=== PATIENT | male | born 1960 | race Caucasian/White ===

== ENCOUNTER 2018-02-09 05:10 | Emergency (ER) | payer SELFPAY ==
[2018-02-09] MEDS ORDERED: LORazepam 0.5 MG TABLET PO STA (05:56)
[2018-02-09 06:18] LABS: BASOPHILS # (AUTO) 0.1 10^3/uL (0.0-0.1); BASOPHILS % (AUTO) 0.7 %; EOSINOPHILS # (AUTO) 0.2 10^3/uL (0.0-0.7); EOSINOPHILS % (AUTO) 1.8 %; HGB - HEMOGLOBIN 16.6 g/dL (14.0-18.0); LYMPHOCYTES # (AUTO) 2.2 10^3/uL (1.5-3.5); MEAN CORPUSCULAR HEMOGLOBIN 26.4 pg (27.0-31.0); MEAN CORPUSCULAR HGB CONC 32.7 g/dL (32.0-36.0); MEAN CORPUSCULAR VOLUME 80.7 fL (80.0-94.0); MEAN PLATELET VOLUME 7.9 fL (7.4-11.4); MONOCYTES # (AUTO) 0.8 10^3/uL (0.0-1.0); NEUTROPHILS # (AUTO) 9.5 10^3/uL (1.5-6.6); NEUTROPHILS % (AUTO) 74.5 %; PLT - PLATELET COUNT 218 10^3/uL (130-450); RED BLOOD COUNT 6.28 10^6/uL (4.70-6.10); RED CELL DISTRIBUTION WIDTH 13.5 % (12.0-15.0); WHITE BLOOD COUNT 12.8 x10^3/uL (4.8-10.8)
[2018-02-09 06:31] LABS: CALCIUM 8.5 mg/dL (8.5-10.3); CREATININE 0.9 mg/dL (0.6-1.2)
--- NOTE | 2018-02-09 06:35 | ED Physician Documentation ---
History of Present Illness - Stated complaint Stated Complaint: HTN - Chief complaint Chief Complaint: General - History obtained from History obtained from: Patient - History of Present Illness Timing: Enter time (approximately 1 AM) Pain level max: 0 Pain level now: 0 Improved by: no ameliorating factors Worsened by: no exacerbating factors - Additonal information Additional information: c/o feeling anxious starting a few hours ago. he kept trying to stay in bed and get to sleep, but he would then feel more anxious and felt the need to get up and pace around the room. he tried to distract himself by watching TV but the feeling of overwhelming anxiety worsened and he thus presents to ED. he had palpitations as well, but denies dyspnea, chest pain, abdominal pain, weakness. he had similar, but milder, symptoms in the past, but rarely and these were typically associated with eating too much (per patient) and feeling bloated. Review of Systems Cardiac: reports: Palpitations. denies: Chest pain / pressure Respiratory: reports: Reviewed and negative GI: reports: Reviewed and negative Neurologic: reports: Reviewed and negative Psychiatric: reports: Anxiety. denies: Depressed PD PAST MEDICAL HISTORY - Past Medical History Past Medical History: Yes Cardiovascular: Hypertension Endocrine/Autoimmune: Type 2 diabetes - Past Surgical History Past Surgical History: No - Present Medications Home Medications: Ambulatory Orders Medication Instructions Recorded Confirmed HYDROcod/ACETAM 5/325 [[place] 5/325] 1 - 2 ea PO Q6H PRN #20 tablet 03/01/16 Hydrocortisone Acetate [Anucort-Hc] 25 mg RC DAILY #10 supp.rect 03/01/16 Lidocaine/Hydrocortisone AC 03/01/16 [Lidocaine-Hc 3-0.5% Cream] Lisinopril 20 mg 03/01/16 Clindamycin HCl [Clindamycin 300MG 300 mg PO Q6H 7 Days capsule 03/04/16 CAP] LORazepam [Ativan] 0.5 - 1 mg PO Q6H PRN #20 tablet 02/09/18 - Allergies Allergies/Adverse Reactions: Allergies Allergy/AdvReac Type Severity Reaction Status Date / Time No Known Drug Allergies Allergy Verified 02/09/18 05:25 - Social History Does the pt smoke?: No Smoking Status: Never smoker Does the pt drink ETOH?: Yes Does the pt have substance abuse?: No Substance Use and Type: Marijuana - Immunizations Immunizations are current?: No - POLST Patient has POLST: No PD ED PE NORMAL - Vitals Vital signs reviewed: Yes - General General: Alert and oriented X 3, No acute distress, Well developed/nourished - HEENT HEENT: Moist mucous membranes - Cardiac Cardiac: RRR, No murmur - Respiratory Respiratory: No respiratory distress, Clear bilaterally - Abdomen Abdomen: Soft, Non tender - Neuro Neuro: Alert and oriented X 3 - Psych Psych: Normal mood, Normal affect Results - Vitals Vitals: Oxygen O2 Source Room air - EKG (time done) No standard instances Rate: Rate (enter#) (100) Rhythm: NSR [place]: Normal Intervals: Normal MD QRS: Normal Ischemia: Normal ST segments - Labs Labs: Laboratory Tests 02/09/18 02/09/18 02/09/18 06:09 06:09 06:09 WBC 12.8 H RBC 6.28 H Hgb 16.6 Hct 50.7 MCV 80.7 MCH 26.4 L MCHC 32.7 RDW 13.5 Plt Count 218 MPV 7.9 Neut # 9.5 H Lymph # 2.2 [place] # 0.8 Eos # 0.2 Baso # 0.1 Absolute Nucleated RBC 0.00 Nucleated RBC % 0.0 Sodium 136 Potassium 3.8 Chloride 105 Carbon Dioxide 21 Anion Gap 10.0 BUN 16 Creatinine 0.9 Estimated GFR (MDRD) 87 L Glucose 190 H Calcium 8.5 Troponin I < 0.04 PD MEDICAL DECISION MAKING - ED course Complexity details: re-evaluated patient, considered differential, d/w patient ED course: after 1mg ativan PO, patient reports resolution of symptoms. Departure - Departure Disposition: 01 Home, Self Care Clinical Impression: Anxiety Condition: Good Instructions: ED Panic Attack Prescriptions: LORazepam [Ativan] 0.5 - 1 mg PO Q6H PRN #20 tablet PRN Reason: Anxiety Comments: Follow up with your doctor: call to arrange for next available appointment. Your blood pressure was high today, but this is not what is causing your symptoms. Your doctor will recheck your blood pressure and make recommendations regarding your blood pressure medication at that time. Your doctor might order other tests to evaluate the symptoms you had tonight. Discharge Date/Time: 02/09/18 07:08
[2018-02-09 06:51] VITALS: BP 152/108
== END 2018-02-09 07:08 | disposition home or self-care (01) ==
LOC: ED 05:10
DX: F41.9 Anxiety disorder, unspecified (principal); R00.0 Tachycardia, unspecified; I10 Essential (primary) hypertension; E11.9 Type 2 diabetes mellitus without complications
CPT/HCPCS: 36415; 80048; 84484; 85025; 93005; 99283; A9270

== ENCOUNTER 2018-09-03 08:54 | Emergency (ER) | payer MEDICAID ==
[2018-09-03] MEDS ORDERED: SODIUM CHLORIDE 0.9% 1,000 ML IV ONE ×2 (09:43→10:52)
[2018-09-03] MEDS ORDERED: LOPERAMIDE 2 MG CAPSULE PO STA (09:43)
--- NOTE | 2018-09-03 09:46 | ED Physician Documentation ---
PD HPI NVD - Stated complaint Stated Complaint: DIARRHEA - Chief complaint Chief Complaint: Abd Pain - History obtained from History obtained from: Patient, Family - History of Present Illness Timing - onset: How many days ago (3) Timing - duration: Days (3) Timing - details: Gradual onset, Still present Associated symptoms: Abdominal pain, Dizzy, Weight loss Improved by: Laying still Worsened by: Moving Similar symptoms before: Has not had sx before Recently seen: Not recently seen - Additonal information Additional information: Previously well 58-year-old male has developed acute vomiting followed by diarrhea starting about 3 days ago. He reports 17 episodes of diarrhea yesterday. He did take some Imodium the first day this occurred and he has not taken it since. He did see his doctor yesterday. He feels that he is dehydrated today. His vomiting has improved. His abdominal pain which is in the left lower side has improved today over yesterday. He has not noted blood in the diarrhea Review of Systems Constitutional: reports: Fatigue, Weight Loss, Sweats. denies: Fever, Chills Eyes: denies: Decreased vision Ears: denies: Ear pain Nose: denies: Congestion Throat: denies: Sore throat Cardiac: denies: Chest pain / pressure, Palpitations Respiratory: denies: Dyspnea, Cough GI: reports: Abdominal Pain, Nausea, Vomiting, Diarrhea : denies: Dysuria, Frequency Skin: denies: Rash, Lesions Musculoskeletal: denies: Neck pain, Back pain, Extremity pain Neurologic: denies: Generalized weakness, Focal weakness, Numbness PD PAST MEDICAL HISTORY - Past Medical History Past Medical History: Yes Cardiovascular: Hypertension Endocrine/Autoimmune: Type 2 diabetes - Past Surgical History Past Surgical History: No - Present Medications Home Medications: Ambulatory Orders Medication Instructions Recorded Confirmed Lisinopril 20 mg 03/01/16 Aspirin [Aspirin EC] 81 mg PO 09/03/18 Atorvastatin [Lipitor] 0 mg 09/03/18 Metoprolol Tartrate 09/03/18 metFORMIN [Glucophage] 09/03/18 - Allergies Allergies/Adverse Reactions: Allergies Allergy/AdvReac Type Severity Reaction Status Date / Time No Known Drug Allergies Allergy Verified 02/09/18 05:25 - Social History Does the pt smoke?: No Smoking Status: Never smoker Does the pt drink ETOH?: Yes Does the pt have substance abuse?: No - Immunizations Immunizations are current?: No - POLST Patient has POLST: No PD ED PE NORMAL - Vitals Vital signs reviewed: Yes (tachy and hypertensive) - General General: Alert and oriented X 3, No acute distress, Well developed/nourished - HEENT HEENT: Atraumatic, PERRL, EOMI - Neck Neck: Supple, no meningeal sign - Cardiac Cardiac: No murmur, Other (tachy to 110) - Abdomen Abdomen: Soft, Other (minimal left lower quadrant tendereness without garding or rebound ) - Back Back: No CVA TTP, No spinal TTP - Derm Derm: Normal color, Warm and dry, No rash - Extremities Extremities: No deformity, No edema - Neuro Neuro: Alert and oriented X 3, pilot can router 2-12 intact, No motor deficit, No sensory deficit, Normal speech Eye Opening: Spontaneous Motor: Obeys Commands Verbal: Oriented GCS Score: 15 - Psych Psych: Normal mood, Normal affect Results - Vitals Vitals: Vital Signs - 24 hr 09/03/18 09/03/18 09:00 10:44 Temperature 36.4 C L Heart Rate 102 H 87 Respiratory 16 16 Rate Blood Pressure 129/84 H 109/76 O2 Saturation 98 95 Oxygen O2 Source Room air - Labs Labs: Microbiology 09/03/18 10:00 Campylobacter Antigen Assay - Final Stool Laboratory Tests 09/03/18 09/03/18 09/03/18 09:41 09:41 09:41 WBC 12.3 H RBC 6.71 H Hgb 18.4 H Hct 54.8 H MCV 81.6 MCH 27.4 MCHC 33.6 RDW 13.4 Plt Count 274 MPV 8.6 Neut # (Auto) 9.0 H Lymph # (Auto) 2.0 [place] # (Auto) 0.9 Eos # (Auto) 0.3 Baso # (Auto) 0.1 Absolute Nucleated RBC 0.02 Nucleated RBC % 0.2 Sodium 133 L Potassium 4.0 Chloride 105 Carbon Dioxide 19 L Anion Gap 9.0 BUN 25 H Creatinine 1.1 Estimated GFR (MDRD) 69 L Glucose 156 H Calcium 8.4 L Total Bilirubin 1.0 AST 24 ALT 31 Alkaline Phosphatase 77 Troponin I < 0.04 Total Protein 7.8 Albumin 4.7 Globulin 3.1 Albumin/Globulin Ratio 1.5 Lipase 34 Procedures - IVC sono (time) 0930 Bedside IVC sono: IVC measures (cm) (0.87), IVC collapsed c insp (cm) (complete), Dehydration (est 2 liter deficit) PD MEDICAL DECISION MAKING - ED course Complexity details: reviewed results, re-evaluated patient, considered differential, d/w patient, d/w family ED course: 58-year-old male with a 3 days of profuse diarrhea is dehydrated and IV saline is begun. We are anticipating a stool specimen. The specimen is negative for campy. Departure - Departure Disposition: 01 Home, Self Care Clinical Impression: Dehydration, Gastroenteritis Condition: Stable Instructions: ED Dehydration, ED Gastroenteritis Viral Follow-Up: [facility] [Provider Group] Comments: Today you were dehydrated from the diarrhea and we have re-hydrated with IV fluids. Diarrhea usually lasts less than 5 days and is self resolving. Take some immodium to reduce the diarrhea and expect resolution in the next 2 days.
[2018-09-03 10:18] LABS: BASOPHILS # (AUTO) 0.1 10^3/uL (0.0-0.1); BASOPHILS % (AUTO) 0.5 %; EOSINOPHILS # (AUTO) 0.3 10^3/uL (0.0-0.7); EOSINOPHILS % (AUTO) 2.4 %; HGB - HEMOGLOBIN 18.4 g/dL (14.0-18.0); LYMPHOCYTES % (AUTO) 16.7 %; MEAN CORPUSCULAR HEMOGLOBIN 27.4 pg (27.0-31.0); MEAN CORPUSCULAR HGB CONC 33.6 g/dL (32.0-36.0); MEAN CORPUSCULAR VOLUME 81.6 fL (80.0-94.0); MEAN PLATELET VOLUME 8.6 fL (7.4-11.4); MONOCYTES # (AUTO) 0.9 10^3/uL (0.0-1.0); MONOCYTES % (AUTO) 7.2 %; NEUTROPHILS % (AUTO) 73.2 %; PLT - PLATELET COUNT 274 10^3/uL (130-450); RED BLOOD COUNT 6.71 10^6/uL (4.70-6.10); RED CELL DISTRIBUTION WIDTH 13.4 % (12.0-15.0); WHITE BLOOD COUNT 12.3 x10^3/uL (4.8-10.8)
[2018-09-03 10:35] LABS: ALBUMIN 4.7 g/dL (3.2-5.5); ALBUMIN/GLOBULIN RATIO 1.5 (1.0-2.2); CALCIUM 8.4 mg/dL (8.5-10.3); CREATININE 1.1 mg/dL (0.6-1.2); TOTAL PROTEIN 7.8 g/dL (6.7-8.2)
[2018-09-03 10:45] VITALS: BP 109/76
== END 2018-09-03 11:56 | disposition home or self-care (01) ==
LOC: ED 08:54
DX: E86.0 Dehydration (principal); K52.9 Noninfective gastroenteritis and colitis, unspecified; I10 Essential (primary) hypertension; E11.9 Type 2 diabetes mellitus without complications; Z79.84 Long term (current) use of oral hypoglycemic drugs; Z79.82 Long term (current) use of aspirin
CPT/HCPCS: 36415; 80053; 83690; 84484; 85025; 87045; 87046; 87077; 96360; 99283; 99284; A9270; 87181

== ENCOUNTER 2020-11-15 10:16 | Outpatient (CLI) | payer MEDICAID | END 2020-11-15 10:17 | disposition home or self-care (01) | LOC: COV 10:16 | PROVIDERS: ATTEND Family Medicine | DX: R05 Cough (principal); R06.02 Shortness of breath; R53.83 Other fatigue; J02.9 Acute pharyngitis, unspecified; Z20.828 Contact with and (suspected) exposure to other viral communicable diseases ==

== ENCOUNTER 2021-01-28 12:52 | Emergency (ER) | payer MEDICAID ==
--- NOTE | 2021-01-28 13:12 | ED Physician Documentation ---
PD HPI ABD PAIN - Stated complaint Stated Complaint: MALE /BACK PX - Chief complaint Chief Complaint: Abd Pain - History obtained from History obtained from: Patient - History of Present Illness Timing - onset: How many days ago (2-3 days of lower abd cramping pain, and feeling of hesitancy with urination. No dysuria nor hematuria.) Timing - duration: Days Timing - details: Gradual onset, Still present, Intermittant Quality: Cramping, Aching, Pain Location: RLQ, Suprapubic, LLQ Radiation: Left flank Improved by: Laying still. No: Eating Worsened by: Moving. No: Eating Associated symptoms: Other (hesitancy and dribbling with urination.). No: Fever, Nausea, Vomiting, Diarrhea, Constipation, Dysuria, Hematuria Similar symptoms before: Diagnosis (Dx with enlarged prostate by exam by provider in [place]. Recently to this area. Has new proivder appt at [facility] in [place] this coming Saturday. Having new lower abd pains for few days.) Recently seen: Not recently seen (seen by provider in [place] about a month or more ago.) Review of Systems Constitutional: denies: Fever, Chills Nose: denies: Rhinorrhea / runny nose, Congestion Throat: denies: Sore throat Cardiac: denies: Chest pain / pressure, Palpitations Respiratory: denies: Dyspnea, Cough GI: reports: Abdominal Pain. denies: Abdominal Swelling, Nausea, Vomiting, Diarrhea : reports: Frequency, Hesitancy. denies: Dysuria, Hematuria, Discharge Skin: denies: Rash Musculoskeletal: denies: Neck pain, Back pain Neurologic: denies: Generalized weakness, Near syncope PD PAST MEDICAL HISTORY - Past Medical History Cardiovascular: Hypertension Endocrine/Autoimmune: Type 2 diabetes - Past Surgical History Past Surgical History: No - Present Medications Home Medications: Ambulatory Orders Medication Instructions Recorded Confirmed Lisinopril 40 mg ORAL DAILY 03/01/16 01/28/21 Aspirin [Aspirin EC] 81 mg PO DAILY 09/03/18 01/28/21 Atorvastatin [Lipitor] 40 mg ORAL DAILY 09/03/18 01/28/21 Metoprolol Tartrate 40 mg ORAL DAILY 09/03/18 01/28/21 metFORMIN [Glucophage] 1,000 mg ORAL BID 09/03/18 01/28/21 Naproxen Sodium 275 mg PO BID #15 tablet 01/28/21 Sulfamethox/Trimeth 800/160 1 each PO BID #14 tablet 01/28/21 [Bactrim Ds 800/160] Tamsulosin [Flomax] 0.4 mg PO DAILY #5 cap 01/28/21 - Allergies Allergies/Adverse Reactions: Allergies Allergy/AdvReac Type Severity Reaction Status Date / Time No Known Drug Allergies Allergy Verified 01/28/21 12:58 - Social History Does the pt smoke?: No Smoking Status: Never smoker Does the pt drink ETOH?: Yes Does the pt have substance abuse?: No - Immunizations Immunizations are current?: No - POLST Patient has POLST: No PD ED PE NORMAL - Vitals Vital signs reviewed: Yes - General General: Alert and oriented X 3, No acute distress, Well developed/nourished - Cardiac Cardiac: RRR, No murmur - Respiratory Respiratory: Clear bilaterally - Abdomen Abdomen: Normal bowel sounds, Soft, Non distended, No organomegaly, Other (some tenderness suprapubic area and left lower without guarding nor masses. ) - Male Male : Deferred - Rectal Rectal: Deferred - Back Back: No CVA TTP - Derm Derm: Normal color, Warm and dry, No rash - Extremities Extremities: No tenderness to palpate, Normal ROM s pain, No edema, No calf tenderness / cord - Neuro Neuro: Alert and oriented X 3, No motor deficit, Normal speech Results - Vitals Vitals: Vital Signs - 24 hr 01/28/21 01/28/21 01/28/21 12:58 13:17 15:45 Temperature 36 C L Heart Rate 78 88 85 Respiratory 18 18 16 Rate Blood Pressure 145/99 H 152/98 H 135/85 H O2 Saturation 96 96 94 01/28/21 16:11 Temperature 36.5 C Heart Rate Respiratory Rate Blood Pressure O2 Saturation Oxygen O2 Source Room air - Labs Labs: Laboratory Tests 01/28/21 01/28/21 01/28/21 13:08 13:33 13:33 WBC 10.7 RBC 6.18 H Hgb 16.6 Hct 51.1 MCV 82.7 MCH 26.9 L MCHC 32.5 RDW 13.2 Plt Count 237 MPV 9.6 Neut # (Auto) 8.4 H Lymph # (Auto) 1.6 [place] # (Auto) 0.4 Eos # (Auto) 0.1 Baso # (Auto) 0.0 Absolute Nucleated RBC 0.00 Nucleated RBC % 0.0 Sodium 138 Potassium 4.4 Chloride 101 Carbon Dioxide 25 Anion Gap 12.0 BUN 14 Creatinine 0.9 Estimated GFR (MDRD) 86 L Glucose 182 H Calcium 9.4 Total Bilirubin 0.8 AST 31 ALT 42 Alkaline Phosphatase 90 C-Reactive Protein 1.1 H Total Protein 7.5 Albumin 4.6 Globulin 2.9 Albumin/Globulin Ratio 1.6 Lipase 39 Prostate Specific Ag Free PSA % Free PSA Calc Urine Color YELLOW Urine Clarity CLEAR Urine pH 5.5 Ur Specific Chambers >=1.030 H Urine Protein NEGATIVE Urine Glucose (UA) NEGATIVE Urine Ketones NEGATIVE Urine Occult Blood NEGATIVE Urine Nitrite NEGATIVE Urine Bilirubin NEGATIVE Urine Urobilinogen 0.2 (NORMAL) Ur Leukocyte Esterase NEGATIVE Ur Microscopic Review NOT INDICATED Urine Culture Comments NOT INDICATED 01/28/21 13:33 WBC RBC Hgb Hct MCV MCH MCHC RDW Plt Count MPV Neut # (Auto) Lymph # (Auto) [place] # (Auto) Eos # (Auto) Baso # (Auto) Absolute Nucleated RBC Nucleated RBC % Sodium Potassium Chloride Carbon Dioxide Anion Gap BUN Creatinine Estimated GFR (MDRD) Glucose Calcium Total Bilirubin AST ALT Alkaline Phosphatase C-Reactive Protein Total Protein Albumin Globulin Albumin/Globulin Ratio Lipase Prostate Specific Ag 40.660 H Free PSA 2.700 % Free PSA Calc 7 L Urine Color Urine Clarity Urine pH Ur Specific Chambers Urine Protein Urine Glucose (UA) Urine Ketones Urine Occult Blood Urine Nitrite Urine Bilirubin Urine Urobilinogen Ur Leukocyte Esterase Ur Microscopic Review Urine Culture Comments - Rads (name of study) abd/pelvic CT Radiology: Prelim report reviewed (CT showing enlarged prostate. No particular tumor appearance. Multiple small cysts in liver. Couple areas that could be concerning for solid. Diverticula without diverticulitis.), See rad report PD MEDICAL DECISION MAKING - ED course Complexity details: reviewed results (CT showing enlarged prostate. No particular tumor appearance. Multiple small cysts in liver. Couple areas that could be concerning for solid. Diverticula without diverticulitis.), re- evaluated patient, considered differential (has had Dx of enlarged prostate. Having lower abd pain recently. Some discomfort with urination/hesitancy. Also with lower abd crampy pain. Likely prostatitis. Consider diverticulitis or kidney stone, or other. Also can assess prostate with CT. ), d/w patient Departure - Departure Disposition: 01 Home, Self Care Clinical Impression: Lower abdominal pain, Cystic disease of liver Prostatitis Qualifiers: Prostatitis type: acute Qualified Code(s): N41.0 - Acute prostatitis Condition: Stable Record reviewed to determine appropriate education?: Yes Instructions: ED Prostatitis Follow-Up: [facility] [Provider Group] Prescriptions: Sulfamethox/Trimeth 800/160 [Bactrim Ds 800/160] 1 each PO BID #14 tablet Tamsulosin [Flomax] 0.4 mg PO DAILY #5 cap Naproxen Sodium 275 mg PO BID #15 tablet Comments: Your CT scan shows an enlarged prostate. No signs of diverticulitis or intestinal problems. Your liver does show multiple small cysts which typically are benign. Your blood tests show an elevation of the prostate markers. No signs of bladder infection. Your kidney function and electrolytes are good. At this point we would start you on anti-inflammatory, antibiotic, and medication to do crease the prostate size. Add Tylenol as needed for pain. Follow-up with your new primary care this coming week as planned and they will want to refer you to a urologist for further testing and presumably some prostate biopsies. I printed out copies of your CT report and lab tests to bring with you to your appointment. Discharge Date/Time: 01/28/21 16:23
[2021-01-28] MEDS ORDERED: KETOROLAC 15 MG/ML VIAL IVP STA (13:31)
[2021-01-28] MEDS ORDERED: ONDANSETRON 4 MG/2 ML VIAL IVP STA (13:31)
[2021-01-28] MEDS ORDERED: SODIUM CHLORIDE 0.9% 1,000 ML IV STA (13:31)
[2021-01-28 13:43] LABS: BASOPHILS % (AUTO) 0.4 %; EOSINOPHILS # (AUTO) 0.1 10^3/uL (0.0-0.7); HCT - HEMATOCRIT 51.1 % (42.0-52.0); HGB - HEMOGLOBIN 16.6 g/dL (14.0-18.0); LYMPHOCYTES # (AUTO) 1.6 10^3/uL (1.5-3.5); LYMPHOCYTES % (AUTO) 15.3 %; MEAN CORPUSCULAR HEMOGLOBIN 26.9 pg (27.0-31.0); MEAN CORPUSCULAR HGB CONC 32.5 g/dL (32.0-36.0); MEAN CORPUSCULAR VOLUME 82.7 fL (80.0-94.0); MEAN PLATELET VOLUME 9.6 fL (7.4-11.4); MONOCYTES # (AUTO) 0.4 10^3/uL (0.0-1.0); MONOCYTES % (AUTO) 4.1 %; NEUTROPHILS # (AUTO) 8.4 10^3/uL (1.5-6.6); NEUTROPHILS % (AUTO) 78.5 %; PLT - PLATELET COUNT 237 10^3/uL (130-450); RED BLOOD COUNT 6.18 10^6/uL (4.70-6.10); RED CELL DISTRIBUTION WIDTH 13.2 % (12.0-15.0); WHITE BLOOD COUNT 10.7 x10^3/uL (4.8-10.8)
[2021-01-28 14:01] LABS: ALBUMIN 4.6 g/dL (3.2-5.5); ALBUMIN/GLOBULIN RATIO 1.6 (1.0-2.2); BILIRUBIN,TOTAL 0.8 mg/dL (0.2-1.0); CALCIUM 9.4 mg/dL (8.5-10.3); CREATININE 0.9 mg/dL (0.6-1.2); CRP - C-REACTIVE PROTEIN 1.1 mg/dL (0-1.0); POTASSIUM 4.4 mmol/L (3.5-5.0); TOTAL PROTEIN 7.5 g/dL (6.7-8.2)
[2021-01-28 14:01] LABS: BILIRUBIN,URINE NEGATIVE (NEGATIVE); GLUCOSE, URINE (UA) NEGATIVE (NEGATIVE); KETONES,URINE (UA) NEGATIVE (NEGATIVE); LEUKOCYTE ESTERASE, URINE NEGATIVE (NEGATIVE); NITRITE,URINE NEGATIVE (NEGATIVE); OCCULT BLOOD,URINE NEGATIVE (NEGATIVE); PH,URINE 5.5 PH (5.0-7.5); PROTEIN,URINE NEGATIVE (NEGATIVE); UROBILINOGEN,URINE 0.2 (NORMAL) E.U./dL (NORMAL)
[2021-01-28 14:02] LABS: CLARITY,URINE CLEAR (CLEAR)
[2021-01-28] MEDS ORDERED: IOVERSOL 320 100 ML VIAL IVP ONE ×2 (14:07→14:26)
[2021-01-28 14:15] LABS: PSA FREE 2.7 ng/mL (0.16-2.81)
[2021-01-28 14:16] LABS: PSA TOTAL 40.66 ng/mL (0.000-2.000)
--- NOTE | 2021-01-28 15:04 | CT Report ---
PROCEDURE: Abdomen/Pelvis W INDICATIONS: LLQ Abdominal pain, diverticulitis suspected CONTRAST: IV CONTRAST: Optiray 320 ml: 100 PO CONTRAST: *NO PO CONTRAST TECHNIQUE: After the administration of intravenous contrast, 5 mm thick sections acquired from the diaphragms to the symphysis. 5 mm thick coronal and sagittal reformats were acquired. For radiation dose reducti on, the following was used: automated exposure control, adjustment of mA and/or kV according to alfred ent size. COMPARISON: None. FINDINGS: Image quality: Excellent. ABDOMEN: Lung bases: Lung bases are clear. Heart size is normal. Solid organs: There are numerous small low-density lesions in the liver, most of these lesions likely represent cys ts versus hemangiomata. Cannot exclude subtle solid liver lesions. Reference images 20 and 21 of seri es 3 for 2 of the potential solid lesions in the right lobe of the liver. Spleen is unremarkable. Gallbladder there is a large gallstone in the gallbladder. The gallbladder wall is not thickened. Bi liary system is non dilated. Pancreas enhances normally. No adrenal nodules. Kidneys demonstrate n ormal size and enhancement, without hydronephrosis. Peritoneum and bowel: Bowel loops demonstrate normal wall thickness and caliber. No free fluid or a ir. Sigmoid diverticulosis without evidence of acute diverticulitis. Nodes and vessels: No retroperitoneal or mesenteric adenopathy by size criteria. Aorta and inferior vena cava are normal in size. Miscellaneous: No ventral hernias. PELVIS: Genitourinary: Bladder wall thickness is normal. Prostate is enlarged. Miscellaneous: No inguinal hernias or adenopathy. Bones: No suspicious bony lesions. No vertebral body compression fractures. IMPRESSION: 1. Sigmoid diverticulosis without evidence of acute diverticulitis. 2. Prostate enlargement. 3. Cholelithiasis. 4. There are numerous low density lesions in the liver. Most of these lesions likely represent cysts versus hemangiomata. At least 2 lesions in the right lobe may potentially represent solid lesions. Co mparison with prior studies would be helpful if possible. If this is not possible, consider correlati on with a liver ultrasound examination on a nonemergent basis. Reviewed by: Praveen Alvarez MD on 01/28/2021 2:03 PM [facility] Approved by: Praveen Alvarez MD on 01/28/2021 2:03 PM [facility] Station ID: [id number]
[2021-01-28 15:46] VITALS: BP 135/85
[2021-01-28] MEDS ORDERED: SULFAMETH/TRIMETH DS 800/160 MG TABLET PO STA (15:57)
[2021-01-28] MEDS ORDERED: TAMSULOSIN 0.4 MG CAPSULE PO STA (15:57)
== END 2021-01-28 16:23 | disposition home or self-care (01) ==
LOC: ED 12:52
DX: N41.0 Acute prostatitis (principal); N40.1 Benign prostatic hyperplasia with lower urinary tract symptoms; R35.0 Frequency of micturition; R39.11 Hesitancy of micturition; K76.89 Other specified diseases of liver; K80.20 Calculus of gallbladder without cholecystitis without obstruction; K57.30 Diverticulosis of large intestine without perforation or abscess without bleeding; I10 Essential (primary) hypertension; E11.9 Type 2 diabetes mellitus without complications; Z79.84 Long term (current) use of oral hypoglycemic drugs; Z79.82 Long term (current) use of aspirin
CPT/HCPCS: 36415; 51798; 74177; 80053; 81003; 83690; 84153; 84154; 85025; 86140; 96374; 96375; 99284; A9270; Q9967; 81001; 87086

== ENCOUNTER 2021-03-25 17:49 | Emergency (ER) | payer MEDICAID ==
[2021-03-25 18:15] LABS: BASOPHILS % (AUTO) 0.4 %; EOSINOPHILS # (AUTO) 0.3 10^3/uL (0.0-0.7); EOSINOPHILS % (AUTO) 2.2 %; HCT - HEMATOCRIT 48.7 % (42.0-52.0); HGB - HEMOGLOBIN 16.2 g/dL (14.0-18.0); LYMPHOCYTES # (AUTO) 2.6 10^3/uL (1.5-3.5); LYMPHOCYTES % (AUTO) 23.4 %; MEAN CORPUSCULAR HEMOGLOBIN 27.1 pg (27.0-31.0); MEAN CORPUSCULAR HGB CONC 33.3 g/dL (32.0-36.0); MEAN CORPUSCULAR VOLUME 81.6 fL (80.0-94.0); MEAN PLATELET VOLUME 9.6 fL (7.4-11.4); MONOCYTES # (AUTO) 0.8 10^3/uL (0.0-1.0); MONOCYTES % (AUTO) 7.5 %; NEUTROPHILS # (AUTO) 7.4 10^3/uL (1.5-6.6); NEUTROPHILS % (AUTO) 66.1 %; PLT - PLATELET COUNT 278 10^3/uL (130-450); RED BLOOD COUNT 5.97 10^6/uL (4.70-6.10); RED CELL DISTRIBUTION WIDTH 13.1 % (12.0-15.0); WHITE BLOOD COUNT 11.2 x10^3/uL (4.8-10.8)
[2021-03-25 18:31] LABS: BILIRUBIN,URINE NEGATIVE (NEGATIVE); GLUCOSE, URINE (UA) NEGATIVE (NEGATIVE); KETONES,URINE (UA) NEGATIVE (NEGATIVE); LEUKOCYTE ESTERASE, URINE NEGATIVE (NEGATIVE); NITRITE,URINE NEGATIVE (NEGATIVE); OCCULT BLOOD,URINE TRACE-INTA (NEGATIVE); PROTEIN,URINE NEGATIVE (NEGATIVE); UROBILINOGEN,URINE 1 (NORMAL) E.U./dL (NORMAL)
[2021-03-25 18:31] LABS: ALBUMIN 4.6 g/dL (3.2-5.5); ALBUMIN/GLOBULIN RATIO 1.6 (1.0-2.2); BILIRUBIN,TOTAL 0.5 mg/dL (0.2-1.0); CREATININE 0.9 mg/dL (0.6-1.2); POTASSIUM 4.5 mmol/L (3.5-5.0); TOTAL PROTEIN 7.4 g/dL (6.7-8.2)
[2021-03-25 18:35] LABS: CLARITY,URINE CLEAR (CLEAR)
[2021-03-25] MEDS ORDERED: SODIUM CHLORIDE 0.9% 1,000 ML IV STA (19:41)
[2021-03-25] MEDS ORDERED: KETOROLAC 30 MG/ML VIAL IVP STA (19:41)
--- NOTE | 2021-03-25 19:45 | ED Physician Documentation ---
PD HPI MALE - Stated complaint Stated Complaint: MALE - Chief complaint Chief Complaint: Abd Pain - History obtained from History obtained from: Patient - History of Present Illness Timing - onset: How many days ago (3) Timing - duration: Days (3) Timing - details: Gradual onset, Still present Associated symptoms: Back pain, Other (pelvic pain similar to prostatitis). No: Dysuria, Urinary frequency, Discharge, Testiclar pain, Scrotal swelling Similar symptoms before: Diagnosis (prostatitis) Recently seen: Not recently seen - Additional information Additional information: 61-year-old male who was seen in [place] for prostatitis finished a course of antibiotic over a month ago and he is now developed some pain in his pelvis again slightly different than what he is had previously and the pain is much harder and he is having some radiation into his right flank with this. He does not have a prior history of kidney stone. He does have arrangements to see a urologist about his prostate in 4 days. Review of Systems Constitutional: denies: Fever Eyes: denies: Decreased vision Ears: denies: Ear pain Nose: denies: Congestion Throat: denies: Sore throat Cardiac: denies: Chest pain / pressure, Palpitations Respiratory: denies: Dyspnea, Cough GI: reports: Abdominal Pain, Other (lower abdomen/pelvis). denies: Nausea, Vomiting, Constipation, Diarrhea : denies: Dysuria, Frequency Skin: denies: Rash Musculoskeletal: reports: Back pain. denies: Neck pain Neurologic: denies: Generalized weakness, Focal weakness, Numbness PD PAST MEDICAL HISTORY - Past Medical History Cardiovascular: Hypertension Endocrine/Autoimmune: Type 2 diabetes - Past Surgical History Past Surgical History: No - Present Medications Home Medications: Ambulatory Orders Medication Instructions Recorded Confirmed Lisinopril 40 mg ORAL DAILY 03/01/16 01/28/21 Aspirin [Aspirin EC] 81 mg PO DAILY 09/03/18 01/28/21 Atorvastatin [Lipitor] 40 mg ORAL DAILY 09/03/18 01/28/21 Metoprolol Tartrate 40 mg ORAL DAILY 09/03/18 01/28/21 metFORMIN [Glucophage] 1,000 mg ORAL BID 09/03/18 01/28/21 Naproxen Sodium 275 mg PO BID #15 tablet 01/28/21 Sulfamethox/Trimeth 800/160 1 each PO BID #14 tablet 01/28/21 [Bactrim Ds 800/160] Tamsulosin [Flomax] 0.4 mg PO DAILY #5 cap 01/28/21 Doxycycline Hyclate 100 mg PO BID #28 tab 03/25/21 - Allergies Allergies/Adverse Reactions: Allergies Allergy/AdvReac Type Severity Reaction Status Date / Time No Known Drug Allergies Allergy Verified 03/25/21 17:57 - Social History Does the pt smoke?: No Smoking Status: Never smoker Does the pt drink ETOH?: Yes Does the pt have substance abuse?: No - Immunizations Immunizations are current?: No - POLST Patient has POLST: No PD ED PE NORMAL - Vitals Vital signs reviewed: Yes (hypertensive ) - General General: Alert and oriented X 3, No acute distress, Well developed/nourished - HEENT HEENT: Atraumatic, PERRL, EOMI - Neck Neck: Supple, no meningeal sign, No bony TTP - Cardiac Cardiac: RRR, No murmur - Respiratory Respiratory: No respiratory distress, Clear bilaterally - Abdomen Abdomen: Normal bowel sounds, Soft, Non tender, Non distended, No organomegaly - Back Back: No CVA TTP, No spinal TTP - Derm Derm: Normal color, Warm and dry, No rash - Extremities Extremities: No deformity, No edema - Neuro Neuro: Alert and oriented X 3, television 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 2-12 intact, No motor deficit, No sensory deficit, Normal speech Eye Opening: Spontaneous Motor: Obeys Commands Verbal: Oriented GCS Score: 15 - Psych Psych: Normal mood, Normal affect Results - Vitals Vitals: Vital Signs - 24 hr 03/25/21 03/25/21 17:57 20:03 Temperature 36.6 C Heart Rate 90 81 Respiratory 16 18 Rate Blood Pressure 165/98 H 155/101 H O2 Saturation 96 99 Oxygen O2 Source Room air - Labs Labs: Laboratory Tests 03/25/21 03/25/21 03/25/21 18:05 18:11 18:11 WBC 11.2 H RBC 5.97 Hgb 16.2 Hct 48.7 MCV 81.6 MCH 27.1 MCHC 33.3 RDW 13.1 Plt Count 278 MPV 9.6 Neut # (Auto) 7.4 H Lymph # (Auto) 2.6 [place] # (Auto) 0.8 Eos # (Auto) 0.3 Baso # (Auto) 0.0 Absolute Nucleated RBC 0.00 Nucleated RBC % 0.0 Sodium 143 Potassium 4.5 Chloride 102 Carbon Dioxide 31 Anion Gap 10.0 BUN 18 Creatinine 0.9 Estimated GFR (MDRD) 86 L Glucose 151 H Calcium 10.0 Total Bilirubin 0.5 AST 18 ALT 24 Alkaline Phosphatase 110 Total Protein 7.4 Albumin 4.6 Globulin 2.8 Albumin/Globulin Ratio 1.6 Lipase 47 Urine Color YELLOW Urine Clarity CLEAR Urine pH 6.0 Ur Specific [place] 1.025 Urine Protein NEGATIVE Urine Glucose (UA) NEGATIVE Urine Ketones NEGATIVE Urine Occult Blood TRACE-INTA Urine Nitrite NEGATIVE Urine Bilirubin NEGATIVE Urine Urobilinogen 1 (NORMAL) Ur Leukocyte Esterase NEGATIVE Ur Microscopic Review NOT INDICATED Urine Culture Comments NOT INDICATED - Rads (name of study) CT ab/pel w/o Radiology: Prelim report reviewed (Impression: 1. No evidence of appendicitis no evidence of nephrolithiasis or obstructive uropathy cholelithiasis without CT evidence of cholecystitis colonic diverticulosis without acute diverticulitis. ), Final report received (. Multiple small hypodense foci redemonstrated throughout the liver. These remain too small to characterize but appear similar in size and morphology compared to the recent prior study. The differential includes multiple hepatic cyst or biliary hematomas. A small hepatic mass cannot be excluded.), EMP read indepedently, See rad report, Other (Consider follow-up nonemergent liver protocol MRI or CT if clinically indicated.) PD MEDICAL DECISION MAKING - ED course Complexity details: reviewed results, re-evaluated patient, considered differential, d/w patient ED course: 61-year-old male with history of prostatitis as developed symptoms again of prostatitis he is having significant pain in the pelvic area and radiating into the back on the right side there is no evidence of hydronephrosis and no evidence of pyelonephritis. There is no evidence of renal lithiasis or ureterolithiasis. Departure - Departure Disposition: 01 Home, Self Care Clinical Impression: Prostatitis Qualifiers: Prostatitis type: acute Qualified Code(s): N41.0 - Acute prostatitis Condition: Stable Instructions: ED Prostatitis Follow-Up: Your, urologist [Other] Prescriptions: Doxycycline Hyclate 100 mg PO BID #28 tab Comments: Today on your CT scan again are shown some small cyst in your liver these are usually benign but the radiologist has recommended an MRI liver protocol for you to obtain this can be obtained as an outpatient in a nonemergent setting.
--- NOTE | 2021-03-25 20:51 | CT Report ---
PROCEDURE: Abdomen/Pelvis WO INDICATIONS: right flank pain hematuria TECHNIQUE: Noncontrast 5 mm thick sections acquired from the diaphragms to the symphysis. 5 mm coronal and sagi ttal reformats were then performed. For radiation dose reduction, the following was used: automated exposure control, adjustment of mA and/or kV according to patient size. COMPARISON: CT abdomen pelvis 01/28/2021. FINDINGS: Image quality: Excellent. ABDOMEN: Lung bases: There is mild linear atelectasis or scarring in the lung bases. Heart size is normal. Mil d prominent subcentimeter paraesophageal lymph nodes are redemonstrated along the distal esophagus. Solid organs: Multiple small hypodense foci are redemonstrated throughout the right and left hepatic lobes as well as the caudate lobe, with the largest measuring up to 1.0 cm in the right lobe. These a re too small to characterize but appear similar in size and morphology compared to the prior study. T here is a peripherally calcified gallstone in the gallbladder without wall thickening or pericholecys tic fluid. Biliary system is non dilated. The spleen is normal in size. Pancreas enhances normally w ithout peripancreatic fat stranding or fluid collections. No adrenal nodules. Kidneys demonstrate n o hydronephrosis. No renal or ureteral stones identified. There is mild nonspecific perinephric stran ding redemonstrated bilaterally. The ureters are nondistended. Peritoneum and bowel: Unenhanced bowel loops demonstrate normal wall thickness and caliber. The appe ndix is normal in appearance. There is colonic diverticulosis without acute diverticulitis. No free f luid or air. Nodes and vessels: No retroperitoneal or mesenteric adenopathy by size criteria. Aorta and inferior vena cava are normal in caliber. Miscellaneous: No ventral hernias. PELVIS: Genitourinary: Bladder wall thickness is normal. There is enlargement of the prostate redemonstrated . Miscellaneous: No inguinal hernias or adenopathy. Bones: No suspicious bony lesions. No vertebral body compression fractures. IMPRESSION: 1. No evidence of appendicitis. 2. No evidence of nephrolithiasis or obstructive uropathy. 3. Cholelithiasis without CT evidence of cholecystitis. 4. Colonic diverticulosis without acute diverticulitis. 5. Multiple small hypodense foci redemonstrated throughout the liver. These remain too small to farrah cterize but appear similar in size and morphology compared to the recent prior study. The differentia l includes multiple hepatic cysts or biliary hamartomas. A small hepatic mass cannot be excluded. 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 Reviewed by: Juice Bonilla MD on 03/25/2021 8:50 PM PDT Approved by: Juice Bonilla MD on 03/25/2021 8:50 PM PDT Station ID: [id number]
[2021-03-25] MEDS ORDERED: DOXYCYCLINE 100 MG TABLET PO STA (21:15)
[2021-03-25 21:23] VITALS: BP 159/83
== END 2021-03-25 21:29 | disposition home or self-care (01) ==
LOC: ED 17:49
DX: N41.0 Acute prostatitis (principal); I10 Essential (primary) hypertension; E11.9 Type 2 diabetes mellitus without complications; Z79.84 Long term (current) use of oral hypoglycemic drugs
CPT/HCPCS: 36415; 74176; 80053; 81003; 83690; 85025; 96361; 96374; 99283; 99284; A9270; 81001; 87086

== ENCOUNTER 2021-06-09 17:31 | Emergency (ER) | payer MEDICAID ==
[2021-06-09 18:00] LABS: BASOPHILS % (AUTO) 0.3 %; EOSINOPHILS # (AUTO) 0.2 10^3/uL (0.0-0.7); EOSINOPHILS % (AUTO) 2.4 %; HCT - HEMATOCRIT 49.4 % (42.0-52.0); HGB - HEMOGLOBIN 16.3 g/dL (14.0-18.0); LYMPHOCYTES # (AUTO) 2.5 10^3/uL (1.5-3.5); LYMPHOCYTES % (AUTO) 28.2 %; MEAN CORPUSCULAR HEMOGLOBIN 27.1 pg (27.0-31.0); MEAN CORPUSCULAR VOLUME 82.1 fL (80.0-94.0); MEAN PLATELET VOLUME 9.5 fL (7.4-11.4); MONOCYTES # (AUTO) 0.5 10^3/uL (0.0-1.0); NEUTROPHILS # (AUTO) 5.5 10^3/uL (1.5-6.6); NEUTROPHILS % (AUTO) 62.9 %; PLT - PLATELET COUNT 265 10^3/uL (130-450); RED BLOOD COUNT 6.02 10^6/uL (4.70-6.10); RED CELL DISTRIBUTION WIDTH 13.2 % (12.0-15.0); WHITE BLOOD COUNT 8.7 x10^3/uL (4.8-10.8)
[2021-06-09 18:20] LABS: ALBUMIN 4.8 g/dL (3.2-5.5); ALBUMIN/GLOBULIN RATIO 1.8 (1.0-2.2); CALCIUM 9.3 mg/dL (8.5-10.3); CREATININE 0.9 mg/dL (0.6-1.2); TOTAL PROTEIN 7.5 g/dL (6.7-8.2)
[2021-06-09 19:33] LABS: BILIRUBIN,URINE NEGATIVE (NEGATIVE); GLUCOSE, URINE (UA) 100 mg/dL (NEGATIVE); KETONES,URINE (UA) NEGATIVE (NEGATIVE); LEUKOCYTE ESTERASE, URINE NEGATIVE (NEGATIVE); NITRITE,URINE NEGATIVE (NEGATIVE); OCCULT BLOOD,URINE NEGATIVE (NEGATIVE); PROTEIN,URINE NEGATIVE (NEGATIVE); UROBILINOGEN,URINE 1 (NORMAL) E.U./dL (NORMAL)
[2021-06-09 19:35] LABS: CLARITY,URINE CLEAR (CLEAR)
[2021-06-09] MEDS ORDERED: KETOROLAC 15 MG/ML VIAL IM STA (21:01)
--- NOTE | 2021-06-09 21:22 | ED Physician Documentation ---
History of Present Illness - Stated complaint Stated Complaint: MALE - Chief complaint Chief Complaint: Abd Pain - History obtained from History obtained from: Patient, Other (chart review) - Additonal information Additional information: 61-year-old man with past medical history of prostatitis, treated in January with 7-day course of Bactrim and in March with 14-day course of doxycycline, scheduled to have a biopsy in [place] by urologist in 4 weeks, presents with persistent prostate pain since that time. endorses dysuria but is able to urinate. denies fever, abd pain nausea vomiting Review of Systems Constitutional: denies: Fever, Chills GI: denies: Abdominal Pain, Nausea, Vomiting : reports: Dysuria PD PAST MEDICAL HISTORY - Past Medical History Past Medical History: Yes Cardiovascular: Hypertension Endocrine/Autoimmune: Type 2 diabetes - Past Surgical History Past Surgical History: No - Present Medications Home Medications: Ambulatory Orders Medication Instructions Recorded Confirmed Lisinopril 40 mg ORAL DAILY 03/01/16 06/09/21 Aspirin [Aspirin EC] 81 mg PO DAILY 09/03/18 06/09/21 Atorvastatin [Lipitor] 40 mg ORAL DAILY 09/03/18 06/09/21 Metoprolol Tartrate 40 mg ORAL DAILY 09/03/18 06/09/21 metFORMIN [Glucophage] 1,000 mg ORAL BID 09/03/18 06/09/21 Naproxen Sodium 275 mg PO BID #15 tablet 01/28/21 06/09/21 Sulfamethox/Trimeth 800/160 1 each PO BID #14 tablet 01/28/21 06/09/21 [Bactrim Ds 800/160] Tamsulosin [Flomax] 0.4 mg PO DAILY #5 cap 01/28/21 06/09/21 Doxycycline Hyclate 100 mg PO BID #28 tab 03/25/21 06/09/21 - Allergies Allergies/Adverse Reactions: Allergies Allergy/AdvReac Type Severity Reaction Status Date / Time No Known Drug Allergies Allergy Verified 06/09/21 17:41 - Social History Does the pt smoke?: No Smoking Status: Never smoker Does the pt drink ETOH?: Yes Does the pt have substance abuse?: No - Immunizations Immunizations are current?: No - POLST Patient has POLST: No PD ED PE NORMAL - Vitals Vital signs reviewed: Yes - General General: Alert and oriented X 3, No acute distress, Well developed/nourished - HEENT HEENT: Atraumatic, PERRL, EOMI Results - Vitals Vitals: Vital Signs - 24 hr 06/09/21 06/09/21 06/09/21 17:41 19:31 21:00 Temperature 36.8 C 36.8 C Heart Rate 86 86 82 Respiratory 18 18 16 Rate Blood Pressure 120/81 H 120/81 H 125/79 O2 Saturation 96 96 100 Oxygen O2 Source Room air - Labs Labs: Laboratory Tests 06/09/21 06/09/21 06/09/21 17:56 17:56 19:27 WBC 8.7 RBC 6.02 Hgb 16.3 Hct 49.4 MCV 82.1 MCH 27.1 MCHC 33.0 RDW 13.2 Plt Count 265 MPV 9.5 Neut # (Auto) 5.5 Lymph # (Auto) 2.5 [place] # (Auto) 0.5 Eos # (Auto) 0.2 Baso # (Auto) 0.0 Absolute Nucleated RBC 0.00 Nucleated RBC % 0.0 Sodium 139 Potassium 4.0 Chloride 103 Carbon Dioxide 26 Anion Gap 10.0 BUN 14 Creatinine 0.9 Estimated GFR (MDRD) 86 L Glucose 236 H Calcium 9.3 Total Bilirubin 1.0 AST 20 ALT 26 Alkaline Phosphatase 98 Total Protein 7.5 Albumin 4.8 Globulin 2.7 Albumin/Globulin Ratio 1.8 Lipase 46 Urine Color YELLOW Urine Clarity CLEAR Urine pH 6.0 Ur Specific [place] 1.010 Urine Protein NEGATIVE Urine Glucose (UA) 100 H Urine Ketones NEGATIVE Urine Occult Blood NEGATIVE Urine Nitrite NEGATIVE Urine Bilirubin NEGATIVE Urine Urobilinogen 1 (NORMAL) Ur Leukocyte Esterase NEGATIVE Ur Microscopic Review NOT INDICATED Urine Culture Comments NOT INDICATED PD MEDICAL DECISION MAKING - ED course ED course: Post void residual 100 mL. Patient is not generating a significant amount of urine in the emergency department therefore we will discontinue the Bernal. After extensive discussion patient is still refusing prostate exam. We will treat with antibiotics and then discharge home with pain medication. He will follow up with his urologist at [facility] for biopsy this month. Return precautions given. Departure - Departure Disposition: Home, Self Care Clinical Impression: Dysuria, Prostatitis Condition: Good
[2021-06-09] MEDS ORDERED: cefTRIAXone 250 MG VIAL IM STA (21:41)
[2021-06-09] MEDS ORDERED: LIDOCAINE 1% 2 ML VIAL MC ONE (21:41)
[2021-06-09] MEDS ORDERED: DOXYCYCLINE 100 MG TABLET PO STA (21:42)
[2021-06-09] MEDS ORDERED: oxyCODONE/ACET 5/325 Prepack 4 PO STA (21:43)
[2021-06-09 22:18] VITALS: BP 122/72
== END 2021-06-09 22:16 | disposition home or self-care (01) ==
LOC: ED 17:31
DX: R30.0 Dysuria (principal); N41.9 Inflammatory disease of prostate, unspecified
CPT/HCPCS: 36415; 51701; 51798; 80053; 81003; 83690; 85025; 96372; 99283; A9270; 81001; 87086

== ENCOUNTER 2021-08-28 11:40 | Emergency (ER) | payer MEDICAID ==
--- NOTE | 2021-08-28 12:23 | XRAY Report ---
PROCEDURE: Chest 1 View X-Ray INDICATIONS: Chest pain TECHNIQUE: One view of the chest was acquired. COMPARISON: None FINDINGS: Surgical changes and devices: None. Lungs and pleura: No pleural effusions or pneumothorax. Lungs are clear. Mediastinum: Mediastinal contours appear normal. Heart size is normal. Bones and chest wall: No suspicious bony lesions. Overlying soft tissues appear unremarkable. IMPRESSION: No acute cardiopulmonary process demonstrated radiographically. Reviewed by: Jovon Hale MD on 08/28/2021 12:22 PM PDT Approved by: Jovon Hale MD on 08/28/2021 12:22 PM PDT Station ID: [id number]
[2021-08-28 12:25] LABS: BASOPHILS # (AUTO) 0.1 10^3/uL (0.0-0.1); BASOPHILS % (AUTO) 0.6 %; EOSINOPHILS # (AUTO) 0.2 10^3/uL (0.0-0.7); EOSINOPHILS % (AUTO) 1.9 %; HCT - HEMATOCRIT 47.9 % (42.0-52.0); HGB - HEMOGLOBIN 15.9 g/dL (14.0-18.0); LYMPHOCYTES # (AUTO) 2.4 10^3/uL (1.5-3.5); LYMPHOCYTES % (AUTO) 28.1 %; MEAN CORPUSCULAR HEMOGLOBIN 27.1 pg (27.0-31.0); MEAN CORPUSCULAR HGB CONC 33.2 g/dL (32.0-36.0); MEAN CORPUSCULAR VOLUME 81.6 fL (80.0-94.0); MEAN PLATELET VOLUME 9.4 fL (7.4-11.4); MONOCYTES # (AUTO) 0.6 10^3/uL (0.0-1.0); MONOCYTES % (AUTO) 7.4 %; NEUTROPHILS # (AUTO) 5.3 10^3/uL (1.5-6.6); NEUTROPHILS % (AUTO) 61.5 %; PLT - PLATELET COUNT 344 10^3/uL (130-450); RED BLOOD COUNT 5.87 10^6/uL (4.70-6.10); RED CELL DISTRIBUTION WIDTH 13.1 % (12.0-15.0); WHITE BLOOD COUNT 8.6 x10^3/uL (4.8-10.8)
[2021-08-28 12:40] LABS: ALBUMIN 4.8 g/dL (3.2-5.5); ALBUMIN/GLOBULIN RATIO 1.7 (1.0-2.2); BILIRUBIN,TOTAL 1.1 mg/dL (0.2-1.0); CALCIUM 9.6 mg/dL (8.5-10.3); POTASSIUM 4.2 mmol/L (3.5-5.0); TOTAL PROTEIN 7.7 g/dL (6.7-8.2)
--- NOTE | 2021-08-28 14:06 | ED Physician Documentation ---
PD HPI CHEST PAIN - Stated complaint Stated Complaint: CHEST PX/PRESURE IN HEAD - Chief complaint Chief Complaint: Cardiac - History obtained from History obtained from: Patient - Additional information Additional information: 61-year-old gentleman with no history of coronary disease but risk factors including hypertension and well-controlled type 2 diabetes presents for evaluation of chest pain. Its been going on constantly for 5 days. It is in the left chest and radiates towards the left scapula. He is not short of breath with it. He denies any exertional component to it. He does have prostate cancer, stage currently unknown but is being scheduled for a PET/CT it sounds like tomorrow. No known metastatic malignancy though. He denies pedal edema or calf pain. Review of Systems Constitutional: denies: Fever, Chills Cardiac: reports: Chest pain / pressure. denies: Palpitations Respiratory: denies: Dyspnea, Cough PD PAST MEDICAL HISTORY - Past Medical History Cardiovascular: Hypertension Endocrine/Autoimmune: Type 2 diabetes - Past Surgical History Past Surgical History: No - Present Medications Home Medications: Ambulatory Orders Medication Instructions Recorded Confirmed Lisinopril 40 mg ORAL DAILY 03/01/16 06/09/21 Aspirin [Aspirin EC] 81 mg PO DAILY 09/03/18 06/09/21 Atorvastatin [Lipitor] 40 mg ORAL DAILY 09/03/18 06/09/21 Metoprolol Tartrate 40 mg ORAL DAILY 09/03/18 06/09/21 metFORMIN [Glucophage] 1,000 mg ORAL BID 09/03/18 06/09/21 Naproxen Sodium 275 mg PO BID #15 tablet 01/28/21 06/09/21 Sulfamethox/Trimeth 800/160 1 each PO BID #14 tablet 01/28/21 06/09/21 [Bactrim Ds 800/160] Tamsulosin [Flomax] 0.4 mg PO DAILY #5 cap 01/28/21 06/09/21 Doxycycline Hyclate 100 mg PO BID #28 tab 03/25/21 06/09/21 Doxycycline Hyclate 100 mg PO BID 10 Days #20 tab 06/09/21 Ketorolac [Toradol] 10 mg PO Q6H PRN #30 tablet 06/09/21 - Allergies Allergies/Adverse Reactions: Allergies Allergy/AdvReac Type Severity Reaction Status Date / Time No Known Drug Allergies Allergy Verified 08/28/21 11:49 - Social History Does the pt smoke?: No Smoking Status: Never smoker Does the pt drink ETOH?: Yes Does the pt have substance abuse?: No - Immunizations Immunizations are current?: No - POLST Patient has POLST: No PD ED PE NORMAL - Vitals Vital signs reviewed: Yes - General General: Alert and oriented X 3, No acute distress - HEENT HEENT: PERRL, EOMI - Neck Neck: Supple, no meningeal sign, No bony TTP - Cardiac Cardiac: RRR, No murmur - Respiratory Respiratory: No respiratory distress, Clear bilaterally - Abdomen Abdomen: Normal bowel sounds, Soft, Non tender - Back Back: No CVA TTP, No spinal TTP - Derm Derm: Normal color, Warm and dry - Extremities Extremities: No edema, No calf tenderness / cord - Neuro Neuro: Alert and oriented X 3, Normal speech - Psych Psych: Normal mood, Normal affect Results - Vitals Vitals: Vital Signs - 24 hr 08/28/21 08/28/21 11:45 13:49 Temperature 36.5 C Heart Rate 81 79 Respiratory 18 21 Rate Blood Pressure 109/69 125/73 O2 Saturation 96 99 Oxygen O2 Source Room air - EKG (time done) 1148 Rate: Rate (enter#) (77) Rhythm: NSR [place]: Normal Intervals: Normal MT QRS: Normal Ischemia: Non specific changes Computer interpretation: Agree with computer - Labs Labs: Laboratory Tests 08/28/21 08/28/21 08/28/21 12:20 12:20 12:20 WBC 8.6 RBC 5.87 Hgb 15.9 Hct 47.9 MCV 81.6 MCH 27.1 MCHC 33.2 RDW 13.1 Plt Count 344 MPV 9.4 Neut # (Auto) 5.3 Lymph # (Auto) 2.4 [place] # (Auto) 0.6 Eos # (Auto) 0.2 Baso # (Auto) 0.1 Absolute Nucleated RBC 0.00 Nucleated RBC % 0.0 D-Dimer Sodium 135 Potassium 4.2 Chloride 100 L Carbon Dioxide 25 Anion Gap 10.0 BUN 18 Creatinine 1.0 Estimated GFR (MDRD) 76 L Glucose 155 H Calcium 9.6 Total Bilirubin 1.1 H AST 16 ALT 23 Alkaline Phosphatase 106 Troponin I High Sens 4.5 Total Protein 7.7 Albumin 4.8 Globulin 2.9 Albumin/Globulin Ratio 1.7 Lipase 72 H 08/28/21 14:20 WBC RBC Hgb Hct MCV MCH MCHC RDW Plt Count MPV Neut # (Auto) Lymph # (Auto) [place] # (Auto) Eos # (Auto) Baso # (Auto) Absolute Nucleated RBC Nucleated RBC % D-Dimer < 200.0 L Sodium Potassium Chloride Carbon Dioxide Anion Gap BUN Creatinine Estimated GFR (MDRD) Glucose Calcium Total Bilirubin AST ALT Alkaline Phosphatase Troponin I High Sens Total Protein Albumin Globulin Albumin/Globulin Ratio Lipase - Rads (name of study) Single view chest x-ray is unremarkable Radiology: EMP read contemporaneously PD MEDICAL DECISION MAKING - ED course ED course: 61-year-old gentleman with active prostate cancer and some risk factors for coronary disease presents with 5 days of constant nonexertional and atypical chest pain. Nothing in the history or physical to suggest PE but noting that he does have active cancer. He is not short of breath. EKG is nonischemic and troponin is normal and given 5 days of constant pain this is likely enough to rule him out at this juncture. Departure - Departure Disposition: 01 Home, Self Care Clinical Impression: Atypical chest pain Condition: Good Record reviewed to determine appropriate education?: Yes Instructions: ED Chest Pain Atypical Unkn Cause Comments: No evidence of anything active going on with your heart at this point, and a test for blood clots was also negative. You should still follow-up with the dormitory keeper which you have the appointment for, take a baby aspirin a day. Return for new or worsening symptoms. No hay evidencia de nada activo en reardon corazn en les momento, y emily prueba de cogulos de chen tambin fue negativa. An debe hacer un seguimiento con el cardilogo para el que tiene la [place], zane emily aspirina para bebs al da. Regrese por sntomas nuevos o que empeoran.
[2021-08-28 14:17] VITALS: BP 125/73
== END 2021-08-28 14:45 | disposition home or self-care (01) ==
LOC: ED 11:40
DX: R07.89 Other chest pain (principal); I10 Essential (primary) hypertension; D49.59 Neoplasm of unspecified behavior of other genitourinary organ; E11.9 Type 2 diabetes mellitus without complications; Z79.84 Long term (current) use of oral hypoglycemic drugs
CPT/HCPCS: 36415; 80053; 83690; 84484; 85025; 85379; 93005; 99283; 99284

== ENCOUNTER 2021-12-30 11:04 | Emergency (ER) | payer MEDICAID ==
--- NOTE | 2021-12-30 11:25 | ED Physician Documentation ---
PD HPI CHEST PAIN - Stated complaint Stated Complaint: CHEST PX - Chief complaint Chief Complaint: Cardiac - History obtained from History obtained from: Patient - History of Present Illness Timing - onset: How many days ago (3-4 days of epigastric to lower substernal pain intermittent. Notes it mostly when lying flat or with eating. IMproved sitting up. Pain worse this morning and has persisted.) Timing - onset during: Rest. No: Light activity Timing - duration: Minutes Timing - details: Still present, Intermittant Quality: Indigestion, Pain Location: Substernal, Epigastric Worsened by: Eating, Position (notes it most when lying flat in bed and it has awakened him several times the past few nights.). No: Exertion Associated symptoms: Nausea. No: Shortness of air, Diaphoresis, Feeling faint / dizzy, Palpitations Similar symptoms before: Has not had sx before Recently seen: Clinic (had received RT to upper thoracic spine and is getting chemo for prostate CA. NO known mets to lung/liver, just spine so far.) Review of Systems Constitutional: denies: Fever, Chills Nose: denies: Rhinorrhea / runny nose, Congestion Throat: denies: Sore throat Cardiac: denies: Palpitations, Pedal edema Respiratory: denies: Dyspnea, Cough GI: reports: Abdominal Pain, Nausea. denies: Vomiting, Diarrhea, Bloody / black stool Skin: denies: Rash, Lesions PD PAST MEDICAL HISTORY - Past Medical History Cardiovascular: Hypertension Respiratory: None Endocrine/Autoimmune: Type 2 diabetes GI: None - Past Surgical History Past Surgical History: No - Present Medications Home Medications: Ambulatory Orders Medication Instructions Recorded Confirmed Lisinopril 40 mg ORAL DAILY 03/01/16 12/07/21 Aspirin [Aspirin EC] 81 mg PO DAILY 09/03/18 12/07/21 Atorvastatin [Lipitor] 40 mg ORAL DAILY 09/03/18 12/07/21 Metoprolol Tartrate 40 mg ORAL DAILY 09/03/18 12/07/21 metFORMIN [Glucophage] 1,000 mg ORAL BID 09/03/18 12/07/21 Naproxen Sodium 275 mg PO BID #15 tablet 01/28/21 12/07/21 Sulfamethox/Trimeth 800/160 1 each PO BID #14 tablet 01/28/21 12/07/21 [Bactrim Ds 800/160] Tamsulosin [Flomax] 0.4 mg PO DAILY #5 cap 01/28/21 12/07/21 Doxycycline Hyclate 100 mg PO BID #28 tab 03/25/21 12/07/21 Doxycycline Hyclate 100 mg PO BID 10 Days #20 tab 06/09/21 12/07/21 Ketorolac [Toradol] 10 mg PO Q6H PRN #30 tablet 06/09/21 12/07/21 Lidocaine Viscous 2% [Xylocaine 5 ml PO Q4H PRN #100 ml 12/30/21 Viscous 2%] Omeprazole Magnesium 20 mg PO DAILY 30 Days #30 cap 12/30/21 Sucralfate [Carafate] 1 gm PO ACHS #20 tablet 12/30/21 - Allergies Allergies/Adverse Reactions: Allergies Allergy/AdvReac Type Severity Reaction Status Date / Time No Known Drug Allergies Allergy Verified 12/30/21 11:14 - Social History Does the pt smoke?: No Smoking Status: Never smoker Does the pt drink ETOH?: Yes Does the pt have substance abuse?: No - Immunizations Immunizations are current?: No - POLST Patient has POLST: No PD ED PE NORMAL - Vitals Vital signs reviewed: Yes (initially tachycardic, but decreased here. ) - General General: Alert and oriented X 3, No acute distress, Well developed/nourished - HEENT HEENT: Moist mucous membranes, Pharynx benign - Neck Neck: Supple, no meningeal sign, No adenopathy - Cardiac Cardiac: RRR (regular but tachycardic initially, improved with rest/calming. ), No murmur - Respiratory Respiratory: No respiratory distress, Clear bilaterally - Abdomen Abdomen: Normal bowel sounds, Soft, Non distended, No organomegaly, Other (tender epigastric area without percussion nor rebound tenderness. SOme tender to right of midline but not really RUQ laterally. Lower abd not tender. ) - Derm Derm: Normal color, Warm and dry - Extremities Extremities: No tenderness to palpate, Normal ROM s pain, No edema, No calf tenderness / cord - Neuro Neuro: Alert and oriented X 3, No motor deficit, Normal speech Results - Vitals Vitals: Vital Signs - 24 hr 12/30/21 12/30/21 12/30/21 11:08 13:14 13:41 Temperature 35.6 C L 36.5 C Heart Rate 123 H 110 H 100 Respiratory 18 14 14 Rate Blood Pressure 149/91 H 142/89 H 138/88 H O2 Saturation 98 96 98 Oxygen O2 Source Room air - EKG (time done) 11:13 Rate: Rate (enter#) (121) Rhythm: Sinus tachycardia Wise: Normal Intervals: Normal LA QRS: Normal Ischemia: Normal ST segments. No: ST elevation c/w ischemia, ST depression Compare to prior EKG: Unchanged from prior EKG - Labs Labs: Laboratory Tests 12/30/21 12/30/21 12/30/21 11:24 11:24 11:24 WBC 5.3 RBC 5.80 Hgb 15.2 Hct 46.2 MCV 79.7 L MCH 26.2 L MCHC 32.9 RDW 13.6 Plt Count 222 MPV 9.5 Neut # (Auto) 3.8 Lymph # (Auto) 0.9 L [place] # (Auto) 0.3 Eos # (Auto) 0.2 Baso # (Auto) 0.0 Absolute Nucleated RBC 0.00 Nucleated RBC % 0.0 Sodium 135 Potassium 3.7 Chloride 97 L Carbon Dioxide 24 Anion Gap 14.0 H BUN 14 Creatinine 0.9 Estimated GFR (MDRD) 86 L Glucose 311 H Calcium 9.3 Total Bilirubin 0.6 AST 20 ALT 26 Alkaline Phosphatase 96 Troponin I High Sens 3.2 Total Protein 7.3 Albumin 4.5 Globulin 2.8 Albumin/Globulin Ratio 1.6 Lipase 67 H - Rads (name of study) chest xray Radiology: Prelim report reviewed (no acute process), See rad report upper abd U/S Radiology: Prelim report reviewed (cholelithiasis/sludge without cholecystitis. GB contracted. Some liver cysts noted. ), See rad report PD MEDICAL DECISION MAKING - ED course Complexity details: reviewed results (normal tests with some sludge in GB but no signs of cholecystitis. ), re-evaluated patient (feels better with GI cocktail. ), considered differential (sounds like gastric symptoms. Can get US to eval for gallbladder, labs for pancreas. CXR and ECG?trop to eval for AMI. ), d/w patient Departure - Departure Disposition: 01 Home, Self Care Clinical Impression: Acute epigastric pain Gastritis Qualifiers: Gastritis type: unspecified gastritis Chronicity: acute Gastritis bleeding: without bleeding Qualified Code(s): K29.00 - Acute gastritis without bleeding Condition: Stable Record reviewed to determine appropriate education?: Yes Instructions: ED Gastritis Prescriptions: Sucralfate [Carafate] 1 gm PO ACHS #20 tablet Omeprazole Magnesium 20 mg PO DAILY 30 Days #30 cap Lidocaine Viscous 2% [Xylocaine Viscous 2%] 5 ml PO Q4H PRN #100 ml PRN Reason: Pain Comments: Your EKG, chest x-ray, blood tests do not show any signs of heart or lung problems. No signs of liver or pancreas inflammation. Your ultrasound showed a little bit of sludge in the gallbladder but no signs of inflammation or swelling. Your symptoms sound like an irritation of the stomach and esophagus. We can treat this with acid reducing medicine of omeprazole daily for a month. For the next 5 days also use the sacral fate 4 times a day as directed to coat the stomach and esophagus. To this you can add antacid such as Maalox or Mylanta and combine it with the lidocaine. This is what we gave you here today that helped. Other medicines as usual. Follow-up with your primary care later this week or early next week for follow- up on this if not improving. Transmitted your prescriptions to [facility] in [place] at your request. Discharge Date/Time: 12/30/21 13:41
[2021-12-30 11:33] LABS: BASOPHILS % (AUTO) 0.6 %; EOSINOPHILS # (AUTO) 0.2 10^3/uL (0.0-0.7); EOSINOPHILS % (AUTO) 3.2 %; HCT - HEMATOCRIT 46.2 % (42.0-52.0); HGB - HEMOGLOBIN 15.2 g/dL (14.0-18.0); LYMPHOCYTES # (AUTO) 0.9 10^3/uL (1.5-3.5); LYMPHOCYTES % (AUTO) 17.2 %; MEAN CORPUSCULAR HEMOGLOBIN 26.2 pg (27.0-31.0); MEAN CORPUSCULAR HGB CONC 32.9 g/dL (32.0-36.0); MEAN CORPUSCULAR VOLUME 79.7 fL (80.0-94.0); MEAN PLATELET VOLUME 9.5 fL (7.4-11.4); MONOCYTES # (AUTO) 0.3 10^3/uL (0.0-1.0); MONOCYTES % (AUTO) 6.4 %; NEUTROPHILS # (AUTO) 3.8 10^3/uL (1.5-6.6); NEUTROPHILS % (AUTO) 71.8 %; PLT - PLATELET COUNT 222 10^3/uL (130-450); RED CELL DISTRIBUTION WIDTH 13.6 % (12.0-15.0); WHITE BLOOD COUNT 5.3 x10^3/uL (4.8-10.8)
--- NOTE | 2021-12-30 11:36 | XRAY Report ---
PROCEDURE: Chest 1 View X-Ray INDICATIONS: Chest pain TECHNIQUE: One view of the chest was acquired. COMPARISON: 08/28/2021 FINDINGS: Surgical changes and devices: None. Lungs and pleura: No pleural effusions or pneumothorax. Lungs are clear. Mediastinum: Mediastinal contours appear normal. Heart size is normal. Bones and chest wall: No suspicious bony lesions. Overlying soft tissues appear unremarkable. IMPRESSION: No acute cardiopulmonary findings Reviewed by: Tray Schneider MD on 12/30/2021 10:35 AM [facility] Approved by: Tray Schneider MD on 12/30/2021 10:35 AM [facility] Station ID: [id number]
[2021-12-30 11:49] LABS: ALBUMIN 4.5 g/dL (3.2-5.5); ALBUMIN/GLOBULIN RATIO 1.6 (1.0-2.2); BILIRUBIN,TOTAL 0.6 mg/dL (0.2-1.0); CALCIUM 9.3 mg/dL (8.5-10.3); CREATININE 0.9 mg/dL (0.6-1.2); POTASSIUM 3.7 mmol/L (3.5-5.0); TOTAL PROTEIN 7.3 g/dL (6.7-8.2)
[2021-12-30] MEDS ORDERED: LIDOCAINE VISCOUS 2% 15 ML UDC MM STA (11:59)
[2021-12-30] MEDS ORDERED: FAMOTIDINE 20 MG/2 ML VIAL IVP STA (11:59)
[2021-12-30] MEDS ORDERED: MAG HYDROX/AL HYDROX/SIMETH 30 ML UDC PO STA (11:59)
--- NOTE | 2021-12-30 13:37 | Ultrasound Report ---
PROCEDURE: Ultrasound abdomen Limited INDICATIONS: upper abd/epigastric pain for several days TECHNIQUE: Real-time focused scanning was performed of the abdomen, with image documentation. COMPARISON: None FINDINGS: Liver: Liver shows diffusely increased echogenicity without focal mass lesion. No intrahepatic ducta l dilation. Simple hepatic cysts measuring up to 1.4 cm Gallbladder: Gallbladder is contracted and contains several shadowing calculi. Gallbladder wall is th ickened at 6 mm. Comet tail artifact noted arising from the gallbladder wall as well. Common Bile Duct: 6 mm. Pancreas: Unremarkable as visualized Right Kidney: Appropriate in size and echotexture. No evidence of hydronephrosis. No shadowing calc stephani. No solid or cystic mass lesion. IMPRESSION: 1. Cholelithiasis and contracted gallbladder. No pericholecystic fluid. 2. Probable gallbladder wall adenomyomatosis 3. Hepatic fatty infiltration Reviewed by: Tray Schneider MD on 12/30/2021 12:35 PM [facility] Approved by: Tary Schneider MD on 12/30/2021 12:35 PM [facility] Station ID: [id number]
[2021-12-30 13:43] VITALS: BP 138/88
== END 2021-12-30 13:41 | disposition home or self-care (01) ==
LOC: ED 11:04
DX: K29.00 Acute gastritis without bleeding (principal)
CPT/HCPCS: 36415; 71045; 76705; 80053; 83690; 84484; 85025; 93005; 96374; 99284; A9270

== ENCOUNTER 2022-01-18 10:16 | Day surgery (SDC) | payer MEDICAID ==
[2022-01-18] MEDS ORDERED: LACTATED RINGERS 1,000 ML IV ONE ×2 (10:50→12:05)
--- NOTE | 2022-01-18 11:18 | ANESTHESIA ---
Pre-Anesthesia VS, & Labs - Diagnosis GERD, epigastric pain - Procedure EGD Vital Signs: Temp Pulse Resp BP Pulse Ox 36.2 C L 83 14 135/89 H 97 01/18/22 10:31 01/18/22 10:31 01/18/22 10:31 01/18/22 10:31 01/18/22 10:31 Height: 5 ft 7 in Weight (kg): 96.8 kg Body Mass Index: 33.4 BMI Classification: Obese - NPO >8 hours - Lab Results Current Lab Results: Laboratory Tests 01/18/22 10:40: POC Whole Bld Glucose 132 H Lab results reviewed: Yes Home Medications and Allergies Lisinopril 40 mg ORAL DAILY 03/01/16 Atorvastatin [Lipitor] 40 mg ORAL DAILY 09/03/18 Metoprolol Tartrate 40 mg ORAL DAILY 09/03/18 metFORMIN [Glucophage] 1,000 mg ORAL BID 09/03/18 Abiraterone Acetate [Zytiga] 1,000 mg PO DAILY 01/04/22 predniSONE [Deltasone] 5 mg PO BID 01/04/22 Allergies/Adverse Reactions: Allergies Allergy/AdvReac Type Severity Reaction Status Date / Time No Known Drug Allergies Allergy Verified 12/30/21 11:14 Anes History & Medical History - Anesthetic History Anesthesia Complications: reports: No previous complications Family history of Anesthesia Complications: Denies Family history of Malignant Hyperthermia: Denies - Medical History Cardiovascular: reports: Hypertension, High cholesterol Pulmonary: reports: None Gastrointestinal: reports: GERD Urinary: reports: Other Musculoskeletal: reports: Other Endocrine/Autoimmune: reports: Type 2 diabetes Skin: reports: None Smoking Status: Never smoker - Surgical History General: reports: Colonoscopy, EGD Orthopedic: reports: Other Exam General: Alert, Oriented x3, Cooperative, No acute distress Dental: WNL Mouth Openin Fingerbreadth Neck Mobility: Normal Mallampati classification: II Plan Anesthesia Type: General, Total IV Consent for Procedure(s) Verified and Reviewed: Yes Code Status: Attempt Resuscitation ASA classification: 2-Mild systemic disease Is this case an emergency?: No
[2022-01-18 12:36] VITALS: BP 126/98
--- NOTE | 2022-01-18 13:13 | ANESTHESIA POST OP EVALUATION ---
Anesthesia Post Eval - Post Anesthesia Eval Vitals: Last Vital Signs Temp 36.5 C 01/18/22 12:34 Pulse 76 01/18/22 12:34 Resp 14 01/18/22 12:34 BP 126/98 H 01/18/22 12:34 Pulse Ox 97 01/18/22 12:34 CV Function Including HR & BP: Stable Pain Control: Satisfactory Nausea & Vomiting: Negative Mental Status: Baseline Respiratory Status: Airway Patent Hydration Status: Satisfactory Anesthesia Complications: None
== END 2022-01-18 10:17 | disposition home or self-care (01) ==
LOC: SDS 10:16
PROVIDERS: ATTEND Surgery
DX: R10.13 Epigastric pain (principal); E66.9 Obesity, unspecified; E11.9 Type 2 diabetes mellitus without complications; Z92.3 Personal history of irradiation; C61 Malignant neoplasm of prostate; C79.51 Secondary malignant neoplasm of bone; Z79.84 Long term (current) use of oral hypoglycemic drugs; Z68.33 Body mass index [BMI] 33.0-33.9, adult
CPT/HCPCS: 43235; J7120

== ENCOUNTER 2023-09-26 10:00 | Emergency (ER) | payer MEDICAID ==
--- NOTE | 2023-09-26 12:16 | ED Physician Documentation ---
History of Present Illness - Stated complaint Stated Complaint: COUGH/NO VOICE - Chief complaint Chief Complaint: Heent - History obtained from History obtained from: Patient - History of Present Illness Pain level max: 0 Pain level now: 0 - Additonal information Additional information: 63-year-old male presents to the emergency department stating that 2 days ago he was clearing his throat and there was a small amount of blood in the mucus. None since that time. No fevers. No chills. No cough, no congestion. No headache. He is currently undergoing treatment for prostate cancer. It is metastatic to his bones. mission manager was used for all interactions. No new changes to his medications. He states he is out of Flomax and is requesting a refill. Review of Systems Constitutional: denies: Fever, Chills Cardiac: denies: Chest pain / pressure, Palpitations Respiratory: denies: Dyspnea, Cough, Wheezing GI: denies: Abdominal Pain, Nausea, Vomiting, Diarrhea Skin: denies: Rash Musculoskeletal: denies: Neck pain, Back pain Neurologic: denies: Headache PD PAST MEDICAL HISTORY - Past Medical History Past Medical History: Yes Cardiovascular: Hypertension, High cholesterol Respiratory: None Endocrine/Autoimmune: Type 2 diabetes GI: GERD : Other HEENT: Chronic vision loss Psych: Anxiety, Claustrophobia Musculoskeletal: Other Derm: None - Past Surgical History Past Surgical History: No General: Colonoscopy, EGD Ortho: Other - Present Medications Home Medications: Ambulatory Orders Medication Instructions Recorded Confirmed Lisinopril 40 mg ORAL DAILY 03/01/16 09/26/23 Atorvastatin [Lipitor] 40 mg ORAL DAILY 09/03/18 09/26/23 Metoprolol Tartrate 40 mg ORAL DAILY 09/03/18 09/26/23 metFORMIN [Glucophage] 1,000 mg ORAL BID 09/03/18 09/26/23 Omeprazole Magnesium 20 mg PO DAILY 30 Days #30 cap 12/30/21 09/26/23 Apalutamide [Erleada] 240 mg PO DAILY 11/06/22 09/26/23 Abiraterone Acetate 250 mg PO DAILY 02/21/23 09/26/23 Tamsulosin [Flomax] 0.4 mg PO DAILY #30 cap 09/26/23 amLODIPine [Norvasc] 10 mg PO DAILY 09/26/23 09/26/23 - Allergies Allergies/Adverse Reactions: Allergies Allergy/AdvReac Type Severity Reaction Status Date / Time No Known Drug Allergies Allergy Verified 09/26/23 10:15 - Social History Does the pt smoke?: No Smoking Status: Never smoker Does the pt drink ETOH?: Yes Does the pt have substance abuse?: No - Immunizations Immunizations are current?: No - POLST Patient has POLST: No PD ED PE NORMAL - Vitals Vital signs reviewed: Yes - General General: Alert and oriented X 3, No acute distress - HEENT HEENT: PERRL, Moist mucous membranes, Pharynx benign - Neck Neck: Supple, no meningeal sign, No JVD, No bruit - Cardiac Cardiac: RRR, No murmur - Respiratory Respiratory: No respiratory distress, Clear bilaterally - Abdomen Abdomen: Soft, Non tender, Non distended - Back Back: No CVA TTP, No spinal TTP - Derm Derm: Warm and dry, No rash - Extremities Extremities: No edema - Neuro Neuro: Alert and oriented X 3 - Psych Psych: Normal mood, Normal affect Results - Vitals Vitals: Vital Signs - 24 hr 09/26/23 09/26/23 10:03 13:19 Temperature 36.1 C L 36.7 C Heart Rate 75 75 Respiratory 16 15 Rate Blood Pressure 108/76 110/75 O2 Saturation 96 98 Oxygen O2 Source Room air - Labs Labs: Laboratory Tests 09/26/23 09/26/23 09/26/23 12:19 12:19 12:19 WBC 5.7 RBC 5.82 Hgb 15.7 Hct 47.3 MCV 81.3 MCH 27.0 MCHC 33.2 RDW 12.9 Plt Count 233 MPV 9.9 Neut # (Auto) 3.6 Lymph # (Auto) 1.5 [place] # (Auto) 0.5 Eos # (Auto) 0.1 Baso # (Auto) 0.0 Absolute Nucleated RBC 0.00 Nucleated RBC % 0.0 PT 11.5 INR 1.0 APTT 32.3 Sodium 133 L Potassium 4.2 Chloride 100 L Carbon Dioxide 25 Anion Gap 8.0 BUN 14 Creatinine 0.9 Estimated GFR (MDRD) 86 L Glucose 361 H Calcium 9.5 Total Bilirubin 0.5 AST 38 ALT 45 Alkaline Phosphatase 120 Total Protein 7.0 Albumin 4.4 Globulin 2.6 Albumin/Globulin Ratio 1.7 - Rads (name of study) cxr Relevant Findings:: Final report received, See rad report PD Medical Decision Making - ED course Complexity details: reviewed results, re-evaluated patient, considered differential, d/w patient ED course: No acute findings on chest x-ray, laboratory testing. No hypoxia. No respiratory distress. No evidence of any active bleeding. Has not occurred in 2 days. We will have him follow-up with his PCP for further care. Patient is well-appearing, nontoxic. Afebrile. He did ask for a refill on his Flomax and this was done. Patient counseled regarding signs and symptoms for which I believe and urgent re-evaluation would be necessary. Patient with good understanding of and agreement to plan and is comfortable going home at this time This document was made in part using voice recognition software. While efforts are made to proofread this document, sound alike and grammatical errors may occur. Departure - Departure Disposition: 01 Home, Self Care Clinical Impression: Hemoptysis Condition: Good Instructions: ED Hemoptysis Follow-Up: Panfilo Rodrigez MD [Primary Care Provider] - Within 1 week Prescriptions: Tamsulosin [Flomax] 0.4 mg PO DAILY #30 cap Print Language: Surinamese Comments: Your prescription was sent to [facility] in [place]. Please follow-up with your doctor for further care. Please return if you worsen. Your blood work and chest x-ray do not show any acute abnormalities today. Elizabeth receta fue enviada a [facility] en [place]. Por favor francis un seguimiento con elizabeth mdico para recibir atencin adicional. Por favor regresa si empeoras. Elizabeth anlisis de chen y elizabeth radiografa de trax no muestran ninguna anomala aguda hoy. Forms: PCP List Discharge Date/Time: 09/26/23 13:21
[2023-09-26 12:26] LABS: BASOPHILS % (AUTO) 0.5 %; EOSINOPHILS # (AUTO) 0.1 10^3/uL (0.0-0.7); EOSINOPHILS % (AUTO) 2.4 %; HCT - HEMATOCRIT 47.3 % (42.0-52.0); HGB - HEMOGLOBIN 15.7 g/dL (14.0-18.0); LYMPHOCYTES # (AUTO) 1.5 10^3/uL (1.5-3.5); LYMPHOCYTES % (AUTO) 25.3 %; MEAN CORPUSCULAR HGB CONC 33.2 g/dL (32.0-36.0); MEAN CORPUSCULAR VOLUME 81.3 fL (80.0-94.0); MEAN PLATELET VOLUME 9.9 fL (7.4-11.4); MONOCYTES # (AUTO) 0.5 10^3/uL (0.0-1.0); MONOCYTES % (AUTO) 7.9 %; NEUTROPHILS # (AUTO) 3.6 10^3/uL (1.5-6.6); NEUTROPHILS % (AUTO) 63.4 %; PLT - PLATELET COUNT 233 10^3/uL (130-450); RED BLOOD COUNT 5.82 10^6/uL (4.70-6.10); RED CELL DISTRIBUTION WIDTH 12.9 % (12.0-15.0); WHITE BLOOD COUNT 5.7 x10^3/uL (4.8-10.8)
[2023-09-26 12:35] LABS: PARTIAL THROMBOPLASTIN TIME 32.3 secs (24.9-33.3)
[2023-09-26 12:37] LABS: ALBUMIN 4.4 g/dL (3.2-5.5); ALBUMIN/GLOBULIN RATIO 1.7 (1.0-2.2); BILIRUBIN,TOTAL 0.5 mg/dL (0.2-1.0); CALCIUM 9.5 mg/dL (8.5-10.3); CREATININE 0.9 mg/dL (0.6-1.3); POTASSIUM 4.2 mmol/L (3.5-4.5)
[2023-09-26 12:39] LABS: PT - PROTHROMBIN TIME 11.5 secs (9.9-12.6)
--- NOTE | 2023-09-26 13:04 | XRAY Report ---
PROCEDURE: Chest 2 View X-Ray INDICATIONS: cough TECHNIQUE: 2 views of the chest were acquired. COMPARISON: Chest x-ray 12/30/2021. FINDINGS: Surgical changes and devices: None. Lungs and pleura: No pleural effusions or pneumothorax. Lungs are clear. Mediastinum: Mediastinal contours appear normal. Eventration of the right hemidiaphragm. Heart size is normal. Bones and chest wall: No suspicious bony lesions. Overlying soft tissues appear unremarkable. IMPRESSION: No acute cardiopulmonary process. Reviewed by: Mendez Jernigan MD on 09/26/2023 1:02 PM [facility] Approved by: Mendez Jernigan MD on 09/26/2023 1:02 PM [facility] Station ID: [id number]
[2023-09-26 13:24] VITALS: BP 110/75; O2SAT 98
== END 2023-09-26 13:21 | disposition home or self-care (01) ==
LOC: ED 10:00
DX: R04.2 Hemoptysis (principal); C61 Malignant neoplasm of prostate; C79.51 Secondary malignant neoplasm of bone; I10 Essential (primary) hypertension; E78.00 Pure hypercholesterolemia, unspecified; E11.9 Type 2 diabetes mellitus without complications; Z79.899 Other long term (current) drug therapy; Z79.84 Long term (current) use of oral hypoglycemic drugs
CPT/HCPCS: 36415; 80053; 85025; 85610; 85730; 99283; 99284

== ENCOUNTER 2024-03-23 13:03 | Outpatient (CLI) | payer MEDICARE, MEDICAID ==
[2024-03-23] MEDS ORDERED: iohexoL-300 100 ML VIAL ONE (13:21)
[2024-03-23 13:31] LABS: CREATININE 0.9 mg/dL (0.6-1.3)
[2024-03-23] MEDS: iohexoL-300 100 ML VIAL IVP ONE (15:27)
--- NOTE | 2024-03-23 15:39 | CT Report ---
PROCEDURE: Chest W INDICATIONS: NEOPLASM OF GLOTTIS CONTRAST: Omni 300 100ml TECHNIQUE: After the administration of intravenous contrast, a CT scan of the chest was performed. Images were recorded and evaluated at appropriate window settings. Reformats: axial MIP of the chest, coronal and sagittal. For radiation dose reduction, the following was used: automated exposure control, adjustme nt of mA and/or kV according to patient size. COMPARISON: CT 03/25/2021, 01/28/2021, radiograph 09/26/2023. FINDINGS: Image quality: Diagnostic. Chest wall and lower neck: No thyroid nodule which requires sonographic follow up. No axillary or sup raclavicular adenopathy by size. Lungs and pleura: No consolidation. No pleural effusions. No pneumothorax. 3 to 4 mm solid nodule in the right middle lobe (series 4, image 47). Calcified granuloma in the posterior left lower lobe. Mediastinum: Heart size is normal. No pericardial effusion. No large vessel abnormality. No mediastin al adenopathy by size criteria. Moderate LAD calcifications for age. Bones: No aggressive osseous abnormality. Upper Abdomen: Similar hypoattenuating liver lesions, presumably small cysts. Cholelithiasis without evidence of acute cholecystitis. IMPRESSION: 4 mm solid nodule in the right middle lobe, closely associated to the minor fissure. Findings favor a benign intrapulmonary lymph node over metastatic disease. Attention on follow-up. Moderate coronary artery calcifications for age. Cholelithiasis without evidence of acute cholecystitis. Reviewed by: Dawson Trejo MD on 03/23/2024 3:37 PM PDT Approved by: Dawson Trejo MD on 03/23/2024 3:37 PM PDT Station ID: [id number]
== END 2024-03-23 13:04 | disposition home or self-care (01) ==
LOC: LAB 13:03
PROVIDERS: ATTEND Radiology Radiation Oncology
DX: C32.0 Malignant neoplasm of glottis (principal); C61 Malignant neoplasm of prostate; C79.51 Secondary malignant neoplasm of bone; R91.1 Solitary pulmonary nodule; I25.10 Atherosclerotic heart disease of native coronary artery without angina pectoris; K80.20 Calculus of gallbladder without cholecystitis without obstruction
CPT/HCPCS: 36415; 82565

== ENCOUNTER 2024-08-12 07:41 | Emergency (ER) | payer MEDICARE, MEDICAID ==
--- NOTE | 2024-08-12 08:08 | ED Physician Documentation ---
PD HPI HEENT - Stated complaint Stated Complaint: JAW/THROAT PX,SOA - Chief complaint Chief Complaint: Resp - History obtained from History obtained from: Patient, Family (spouse) - History of Present Illness Timing - onset: How many weeks ago (1-2) Timing - duration: Weeks (1-2) Timing - details: Gradual onset Location: Throat (onset of some throat pain 1-2 weeks ago that has worsened considerably the past several days. Pain with swallowing.) Recently seen: Other (throat cancer and had RT to throat regularly for weeks that ended 4 weeks ago. Throat pain during that time and after but improved and was mild after until the above throat pain in past 12 weeks. No new meds. No recent Radiation. No general URI symptoms. He states last night with some wisps blood) Review of Systems Constitutional: denies: Fever, Chills Nose: denies: Rhinorrhea / runny nose, Congestion Throat: reports: Sore throat Respiratory: denies: Cough PD PAST MEDICAL HISTORY - Past Medical History Cardiovascular: Hypertension, High cholesterol Respiratory: None Endocrine/Autoimmune: Type 2 diabetes GI: GERD : Other HEENT: Chronic vision loss Psych: Anxiety, Claustrophobia Musculoskeletal: Other Derm: None - Past Surgical History Past Surgical History: No General: Colonoscopy, EGD Ortho: Other - Present Medications Home Medications: Ambulatory Orders Medication Instructions Recorded Confirmed Lisinopril 40 mg ORAL DAILY 03/01/16 07/07/24 Atorvastatin [Lipitor] 40 mg ORAL DAILY 09/03/18 07/07/24 Metoprolol Tartrate 40 mg ORAL DAILY 09/03/18 07/07/24 metFORMIN [Glucophage] 1,000 mg ORAL BID 09/03/18 07/07/24 Omeprazole Magnesium 20 mg PO DAILY 30 Days #30 cap 12/30/21 07/07/24 Apalutamide [Erleada] 240 mg PO DAILY 11/06/22 07/07/24 Abiraterone Acetate 250 mg PO DAILY 02/21/23 07/07/24 Tamsulosin [Flomax] 0.4 mg PO DAILY #30 cap 09/26/23 07/07/24 amLODIPine [Norvasc] 10 mg PO DAILY 09/26/23 07/07/24 Fluconazole [Diflucan] 100 mg PO Q2D #2 tablet 08/12/24 HYDROcod/ACETAM 5/325 [[place] 5/325] 1 ea PO Q6H PRN #18 tablet 08/12/24 Lidocaine Viscous 2% [Xylocaine 5 ml PO Q4H PRN #100 ml 08/12/24 Viscous 2%] Pantoprazole [Protonix] 40 mg PO DAILY 30 Days #30 tablet 08/12/24 Sucralfate [Carafate] 1 gm PO ACHS 5 Days #200 ml 08/12/24 diphenhydrAMINE ELIXIR [Benadryl 12.5 mg PO Q6H PRN #240 ml 08/12/24 Elixir] - Allergies Allergies/Adverse Reactions: Allergies Allergy/AdvReac Type Severity Reaction Status Date / Time No Known Drug Allergies Allergy Verified 08/12/24 07:57 - Social History Does the pt smoke?: No Smoking Status: Never smoker Does the pt drink ETOH?: Yes Does the pt have substance abuse?: No - Immunizations Immunizations are current?: No - POLST Patient has POLST: No PD ED PE NORMAL - Vitals Vital signs reviewed: Yes - General General: Alert and oriented X 3, Well developed/nourished, Other (appears in consdierable pain/wincing with swallowing. ) - HEENT HEENT: Moist mucous membranes. No: Pharynx benign (posterior pharynx with unif orm redness without exudate nor plaque. Anterior neck without nodes.) - Cardiac Cardiac: RRR, No murmur - Respiratory Respiratory: No respiratory distress, Clear bilaterally - Abdomen Abdomen: Normal bowel sounds, Soft, Non tender Results - Vitals Vitals: Vital Signs - 24 hr 08/12/24 08/12/24 08/12/24 07:52 08:27 08:57 Temperature 36.8 C Heart Rate 98 100 102 H Respiratory 20 20 20 Rate Blood Pressure 145/92 H O2 Saturation 96 92 92 08/12/24 08/12/24 08/12/24 09:27 09:57 10:00 Temperature Heart Rate 90 107 H 100 Respiratory 20 22 20 Rate Blood Pressure 141/97 H O2 Saturation 94 92 92 08/12/24 10:30 Temperature Heart Rate Respiratory Rate Blood Pressure 130/91 H O2 Saturation Oxygen O2 Source Room air - Labs Labs: Laboratory Tests 08/12/24 08/12/24 08:43 08:43 WBC 8.8 RBC 5.81 Hgb 15.4 Hct 47.6 MCV 81.9 MCH 26.5 L MCHC 32.4 RDW 13.4 Plt Count 249 MPV 9.4 Neut # (Auto) 6.8 H Lymph # (Auto) 1.1 L Kay # (Auto) 0.7 Eos # (Auto) 0.1 Baso # (Auto) 0.0 Absolute Nucleated RBC 0.00 Nucleated RBC % 0.0 Sodium 139 Potassium 4.0 Chloride 105 Carbon Dioxide 23 Anion Gap 11.0 BUN 10 Creatinine 0.6 Estimated GFR (MDRD) 137 Glucose 172 H Calcium 9.5 Total Bilirubin 0.7 AST 10 ALT 12 Alkaline Phosphatase 72 Total Protein 7.1 Albumin 4.3 Globulin 2.8 Albumin/Globulin Ratio 1.5 Lipase 29 PD Medical Decision Making - ED course Complexity details: reviewed results, re-evaluated patient (his throat pain is minimal after the meds here which included lido viscous, benadryl liquid, mylanta and hydrocodone. ), considered differential (pain with swallowing. Had had RT to [facility] [place] 4 months ago with pain and difficulty swallowing at that time. Had improved and symptoms of pain swallowing the past 2 weeks, worsening. ), d/w patient ED course: has not had the RT for 4 months, and no recent URI symptoms per se. Some redness back of throat without exudate noted. Given the pain in back of throat along with redness appearance generally in pharynx area, would have me consider thrush. Unlikely bacterial with minimal clinical apperance after 2 weeks of increasing symptoms. Departure - Departure Disposition: 01 Home, Self Care Clinical Impression: Odynophagia, Esophageal thrush, GERD (gastroesophageal reflux disease) Condition: Stable Record reviewed to determine appropriate education?: Yes Follow-Up: Agnieszka Martinez FNP, [employer] [Provider Admit Priv/Credential] - Panfilo Rodrigez MD [Physician No Access] - Prescriptions: diphenhydrAMINE ELIXIR [Benadryl Elixir] 12.5 mg PO Q6H PRN #240 ml PRN Reason: Pain 1-4 Sucralfate [Carafate] 1 gm PO ACHS 5 Days #200 ml Fluconazole [Diflucan] 100 mg PO Q2D #2 tablet HYDROcod/ACETAM 5/325 [[place] 5/325] 1 ea PO Q6H PRN #18 tablet PRN Reason: Pain Pantoprazole [Protonix] 40 mg PO DAILY 30 Days #30 tablet Lidocaine Viscous 2% [Xylocaine Viscous 2%] 5 ml PO Q4H PRN #100 ml PRN Reason: Pain Comments: Your basic blood count and blood test we did here were normal. Your symptoms sound possibly related to upper esophageal and throat irritation from reflux and as such would treat with some acid reducing medicine and also other medication to coat the esophagus. Otherwise would be also concern for a throat and esophageal infection such as thrush. There is some redness in the back of the throat though not obvious white plaques. Still however I think would want to treat with an antifungal tablet every 2 days for 2 more doses. I believe these will get you feeling better over the next several days. Meanwhile you can use a combination of the lidocaine mixed with the diphenhydramine/Benadryl and even some antacids such as Maalox or Mylanta to help with the throat and esophageal pain. This is what we gave you here. In addition you can use Tylenol every 4-6 hours regularly for the next several days to a week to help with pain and hydrocodone/acetaminophen added on if needed for worse pain. We also given you that here as well. I sent your prescriptions to [facility] in [place]. Follow-up with your oncology and throat specialist if not improving well and resolved over the next several days to week for further treatment ideas and/or p otential visualization of the upper esophagus to see if there is anything else causing the symptoms. Forms: PCP List Discharge Date/Time: 08/12/24 11:02
[2024-08-12] MEDS: HYDROcod/ACETAM 5/325 MG TABLET PO STA (08:52)
[2024-08-12] MEDS: LIDOCAINE VISCOUS 2% 15 ML UDC MM STA (08:53)
[2024-08-12] MEDS: MAG HYDROX/AL HYDROX/SIMETH 30 ML UDC PO STA (08:53)
[2024-08-12] MEDS: diphenhydrAMINE ELIXIR 25 MG/10 ML UDC PO STA (08:53)
[2024-08-12] MEDS: FLUCONAZOLE 100 MG TABLET PO STA (08:53)
[2024-08-12 08:55] LABS: BASOPHILS % (AUTO) 0.3 %; EOSINOPHILS # (AUTO) 0.1 10^3/uL (0.0-0.7); EOSINOPHILS % (AUTO) 0.9 %; HCT - HEMATOCRIT 47.6 % (42.0-52.0); HGB - HEMOGLOBIN 15.4 g/dL (14.0-18.0); LYMPHOCYTES # (AUTO) 1.1 10^3/uL (1.5-3.5); LYMPHOCYTES % (AUTO) 12.4 %; MEAN CORPUSCULAR HEMOGLOBIN 26.5 pg (27.0-31.0); MEAN CORPUSCULAR HGB CONC 32.4 g/dL (32.0-36.0); MEAN CORPUSCULAR VOLUME 81.9 fL (80.0-94.0); MEAN PLATELET VOLUME 9.4 fL (7.4-11.4); MONOCYTES # (AUTO) 0.7 10^3/uL (0.0-1.0); MONOCYTES % (AUTO) 8.1 %; NEUTROPHILS # (AUTO) 6.8 10^3/uL (1.5-6.6); PLT - PLATELET COUNT 249 10^3/uL (130-450); RED BLOOD COUNT 5.81 10^6/uL (4.70-6.10); RED CELL DISTRIBUTION WIDTH 13.4 % (12.0-15.0); WHITE BLOOD COUNT 8.8 x10^3/uL (4.8-10.8)
[2024-08-12 09:20] LABS: ALBUMIN 4.3 g/dL (3.2-5.5); ALBUMIN/GLOBULIN RATIO 1.5 (1.0-2.2); BILIRUBIN,TOTAL 0.7 mg/dL (0.2-1.0); CALCIUM 9.5 mg/dL (8.5-10.3); CREATININE 0.6 mg/dL (0.6-1.3); TOTAL PROTEIN 7.1 g/dL (6.4-8.9)
[2024-08-12 10:13] VITALS: O2SAT 92
[2024-08-12 10:57] VITALS: BP 130/91
== END 2024-08-12 11:02 | disposition home or self-care (01) ==
LOC: ED 07:41
DX: B37.81 Candidal esophagitis (principal); K21.00 Gastro-esophageal reflux disease with esophagitis, without bleeding; C14.0 Malignant neoplasm of pharynx, unspecified
CPT/HCPCS: 36415; 80053; 83690; 85025; 99283; A9270